=== PATIENT | male | born 1970 | race Caucasian/White ===

== ENCOUNTER 2017-09-18 20:08 | Emergency (ER) | payer OTHER ==
[~2017-09-18] VITALS: Ht 182.8 cm; Wt 104.3 kg
[~2017-09-18 20:08] MED LIST: AUGMENTIN 875 M1 TAB PO; B12,B-12,B 12500 MC1 PO; CEPHALEXIN500 M1 PO; CUBICIN500 MG IV; HUMALOG100 U/ML SC; LANTUS100 U/ML SC; LIPITOR10 MG PO; LISINOPRIL20 MG PO; LISINOPRIL5 MG PO; METFORMIN500 MG PO; NEEDLES1 EAC1 MC; SYRINGE1 EA10 MC; XARE20MG PO
[2017-09-18] MEDS ORDERED: NAPROSYN500 MG PO (22:11)
[2017-09-18] MEDS ORDERED: CEPHALEXIN500 M1 PO (22:11)
== END 2017-09-18 22:52 | disposition home or self-care (01) ==
LOC: ED 20:08
DX: L03.113 Cellulitis of right upper limb (principal); Z98.890 Other specified postprocedural states; Z79.899 Other long term (current) drug therapy; Z79.4 Long term (current) use of insulin

== ENCOUNTER 2017-09-21 19:07 | Inpatient (IN) | payer OTHER ==
[~2017-09-21] VITALS: Ht 182.8 cm; Wt 115.0 kg
[~2017-09-21 19:07] MED LIST changes: +NAPROSYN500 MG PO
[2017-09-21 19:30] VITALS: BP 168/84
[2017-09-21 20:55] LABS: BASO % 0.4 % (0.0-1.0); EOS # 0.1 10*3/uL (0.0-0.4); HEMATOCRIT 39.2 % (42.0-52.0); HEMOGLOBIN 13.3 g/dl (14.0-18.0); LYMPH # 1.4 10*3/uL (1.3-4.4); LYMPH % 12.7 % (27.0-41.0); MEAN CELL VOLUME 81.3 fl (80.0-94.0); MEAN CORPUSCULAR HGB 27.6 pg (27.0-31.0); MEAN CORPUSCULAR HGB CONC 33.9 g/dl (33.0-37.0); MEAN PLATELET VOLUME 12.2 fl (9.6-12.3); MONO # 0.9 10*3/uL (0.1-1.0); MONO % 7.9 % (3.0-9.0); NEUT # 8.4 10*3/uL (2.3-7.9); NEUT % 77.6 % (47.0-73.0); PLATELET COUNT AUTOMATED 211 10*3/uL (130-400); RED BLOOD COUNT 4.82 10*6/uL (4.50-5.90); RED CELL DISTRI WIDTH 12.1 % (0-14.5); WHITE BLOOD COUNT 10.9 10*3/uL (4.8-10.8)
[2017-09-21 21:11] LABS: ALBUMIN 2.6 gm/dl (3.1-4.5); ALKALINE PHOSPHATASE 96 U/L (45-117); BUN 13 mg/dl (7-24); CHLORIDE 98 mmol/L (98-107); SGOT/AST 11 IU/L (3-35); SGPT/ALT 15 U/L (12-78); SODIUM 134 mmol/L (136-145); TOTAL PROTEIN 7.1 gm/dL (6.4-8.2)
[2017-09-21 21:13] LABS: TROPONIN I < 0.015 ng/ml (<0.045)
[2017-09-21 23:00] VITALS: BP 138/79
[2017-09-22 07:24] LABS: BASO # 0.1 10*3/uL (0.0-0.1); BASO % 0.5 % (0.0-1.0); EOS # 0.1 10*3/uL (0.0-0.4); EOS % 1.1 % (1.0-4.0); HEMATOCRIT 37.1 % (42.0-52.0); HEMOGLOBIN 12.4 g/dl (14.0-18.0); LYMPH # 1.5 10*3/uL (1.3-4.4); LYMPH % 15.3 % (27.0-41.0); MEAN CELL VOLUME 82.4 fl (80.0-94.0); MEAN CORPUSCULAR HGB 27.6 pg (27.0-31.0); MEAN CORPUSCULAR HGB CONC 33.4 g/dl (33.0-37.0); MEAN PLATELET VOLUME 12.9 fl (9.6-12.3); MONO # 0.8 10*3/uL (0.1-1.0); NEUT # 7.1 10*3/uL (2.3-7.9); NEUT % 74.6 % (47.0-73.0); PLATELET COUNT AUTOMATED 194 10*3/uL (130-400); RED CELL DISTRI WIDTH 12.1 % (0-14.5); WHITE BLOOD COUNT 9.5 10*3/uL (4.8-10.8)
[2017-09-22 08:00] VITALS: BP 141/81
[2017-09-22 08:02] LABS: BUN 11 mg/dl (7-24); CHLORIDE 103 mmol/L (98-107); POTASSIUM 3.7 mmol/L (3.5-5.1); SODIUM 138 mmol/L (136-145); TOTAL PROTEIN 6.5 gm/dL (6.4-8.2); TRIGLYCERIDES 76 mg/dl (<150); VLDL CHOLESTEROL 15 mg/dL (6-40)
[2017-09-22 08:17] LABS: ALBUMIN 2.2 gm/dl (3.1-4.5); ALKALINE PHOSPHATASE 91 U/L (45-117); CHOLESTEROL 144 mg/dL (<200); CREATININE 1.02 mg/dL (0.70-1.30); HDL CHOLESTEROL 50 mg/dl (40-60); LDL CHOLESTEROL 79 mg/dL (9-159); SGOT/AST 9 IU/L (3-35); SGPT/ALT 13 U/L (12-78); THYROID STIM HORMONE (HS) 0.695 uIU/ml (0.358-4.75)
[2017-09-22 12:00] VITALS: BP 145/77
[2017-09-22 16:00] VITALS: BP 152/82
[2017-09-22 20:00] VITALS: BP 157/79
[2017-09-23] VITALS: BP 134/72
[2017-09-23 07:04] LABS: BASO % 0.4 % (0.0-1.0); EOS # 0.1 10*3/uL (0.0-0.4); EOS % 1.1 % (1.0-4.0); HEMATOCRIT 35.9 % (42.0-52.0); HEMOGLOBIN 11.9 g/dl (14.0-18.0); LYMPH # 1.4 10*3/uL (1.3-4.4); LYMPH % 14.7 % (27.0-41.0); MEAN CELL VOLUME 83.7 fl (80.0-94.0); MEAN CORPUSCULAR HGB 27.7 pg (27.0-31.0); MEAN CORPUSCULAR HGB CONC 33.1 g/dl (33.0-37.0); MEAN PLATELET VOLUME 12.1 fl (9.6-12.3); MONO # 0.9 10*3/uL (0.1-1.0); NEUT # 6.8 10*3/uL (2.3-7.9); NEUT % 73.4 % (47.0-73.0); PLATELET COUNT AUTOMATED 181 10*3/uL (130-400); RED BLOOD COUNT 4.29 10*6/uL (4.50-5.90); RED CELL DISTRI WIDTH 12.2 % (0-14.5); WHITE BLOOD COUNT 9.3 10*3/uL (4.8-10.8)
[2017-09-23 07:11] LABS: BUN 8 mg/dl (7-24); CHLORIDE 105 mmol/L (98-107); CREATININE 0.92 mg/dL (0.70-1.30); POTASSIUM 3.6 mmol/L (3.5-5.1); SODIUM 139 mmol/L (136-145)
[2017-09-23 07:15] VITALS: BP 176/82
[2017-09-23 08:00] VITALS: BP 154/74
[2017-09-23 12:00] VITALS: BP 152/76
[2017-09-23 16:00] VITALS: BP 153/84
[2017-09-23 20:00] VITALS: BP 157/84
[2017-09-24] VITALS: BP 157/78
[2017-09-24 07:07] LABS: BASO # 0.1 10*3/uL (0.0-0.1); BASO % 0.8 % (0.0-1.0); EOS # 0.2 10*3/uL (0.0-0.4); EOS % 1.7 % (1.0-4.0); HEMATOCRIT 35.1 % (42.0-52.0); HEMOGLOBIN 11.8 g/dl (14.0-18.0); LYMPH # 1.4 10*3/uL (1.3-4.4); LYMPH % 15.4 % (27.0-41.0); MEAN CELL VOLUME 83.2 fl (80.0-94.0); MEAN CORPUSCULAR HGB CONC 33.6 g/dl (33.0-37.0); MEAN PLATELET VOLUME 11.7 fl (9.6-12.3); MONO # 0.9 10*3/uL (0.1-1.0); MONO % 9.3 % (3.0-9.0); NEUT # 6.7 10*3/uL (2.3-7.9); NEUT % 72.3 % (47.0-73.0); PLATELET COUNT AUTOMATED 223 10*3/uL (130-400); RED BLOOD COUNT 4.22 10*6/uL (4.50-5.90); RED CELL DISTRI WIDTH 12.2 % (0-14.5); WHITE BLOOD COUNT 9.3 10*3/uL (4.8-10.8)
[2017-09-24 07:38] LABS: BUN 7 mg/dl (7-24); CHLORIDE 104 mmol/L (98-107); CREATININE 0.91 mg/dL (0.70-1.30); POTASSIUM 3.5 mmol/L (3.5-5.1); SODIUM 138 mmol/L (136-145); URIC ACID 2.9 mg/dL (3.5-7.2)
[2017-09-24 08:00] VITALS: BP 141/68
[2017-09-24 11:46] VITALS: BP 164/83
[2017-09-24 16:00] VITALS: BP 160/80
[2017-09-24 19:50] VITALS: BP 176/92
[2017-09-25] VITALS: BP 172/74
[2017-09-25 06:20] LABS: BASO # 0.1 10*3/uL (0.0-0.1); BASO % 0.6 % (0.0-1.0); EOS # 0.2 10*3/uL (0.0-0.4); EOS % 2.7 % (1.0-4.0); HEMATOCRIT 34.3 % (42.0-52.0); HEMOGLOBIN 11.4 g/dl (14.0-18.0); LYMPH # 1.5 10*3/uL (1.3-4.4); LYMPH % 18.9 % (27.0-41.0); MEAN CELL VOLUME 82.5 fl (80.0-94.0); MEAN CORPUSCULAR HGB 27.4 pg (27.0-31.0); MEAN CORPUSCULAR HGB CONC 33.2 g/dl (33.0-37.0); MEAN PLATELET VOLUME 11.6 fl (9.6-12.3); MONO # 0.8 10*3/uL (0.1-1.0); NEUT # 5.3 10*3/uL (2.3-7.9); PLATELET COUNT AUTOMATED 235 10*3/uL (130-400); RED BLOOD COUNT 4.16 10*6/uL (4.50-5.90); RED CELL DISTRI WIDTH 12.2 % (0-14.5); WHITE BLOOD COUNT 7.9 10*3/uL (4.8-10.8)
[2017-09-25 06:50] LABS: BUN 8 mg/dl (7-24); CHLORIDE 106 mmol/L (98-107); CREATININE 0.93 mg/dL (0.70-1.30); POTASSIUM 3.5 mmol/L (3.5-5.1); SODIUM 141 mmol/L (136-145)
[2017-09-25 08:00] VITALS: BP 160/83
[2017-09-25 12:00] VITALS: BP 158/80
[2017-09-25 16:00] VITALS: BP 174/90
[2017-09-25] MEDS ORDERED: DOXYCYCLINE100 M3 PO (17:59)
[2017-09-25] MEDS ORDERED: CEPHALEXIN500 M1 PO (17:59)
[2017-09-25 20:00] VITALS: BP 185/93
[2017-09-26] VITALS: BP 174/86
[2017-09-26 06:55] LABS: BASO # 0.1 10*3/uL (0.0-0.1); BASO % 0.6 % (0.0-1.0); EOS # 0.2 10*3/uL (0.0-0.4); EOS % 2.5 % (1.0-4.0); HEMATOCRIT 34.2 % (42.0-52.0); HEMOGLOBIN 11.5 g/dl (14.0-18.0); LYMPH # 1.5 10*3/uL (1.3-4.4); LYMPH % 17.7 % (27.0-41.0); MEAN CELL VOLUME 81.6 fl (80.0-94.0); MEAN CORPUSCULAR HGB 27.4 pg (27.0-31.0); MEAN CORPUSCULAR HGB CONC 33.6 g/dl (33.0-37.0); MEAN PLATELET VOLUME 11.6 fl (9.6-12.3); MONO # 0.9 10*3/uL (0.1-1.0); MONO % 10.4 % (3.0-9.0); NEUT # 5.8 10*3/uL (2.3-7.9); PLATELET COUNT AUTOMATED 263 10*3/uL (130-400); RED BLOOD COUNT 4.19 10*6/uL (4.50-5.90); RED CELL DISTRI WIDTH 12.1 % (0-14.5); WHITE BLOOD COUNT 8.5 10*3/uL (4.8-10.8)
[2017-09-26 07:22] LABS: BUN 7 mg/dl (7-24); CHLORIDE 102 mmol/L (98-107); CREATININE 0.85 mg/dL (0.70-1.30); POTASSIUM 3.3 mmol/L (3.5-5.1); SODIUM 140 mmol/L (136-145)
[2017-09-26 08:00] VITALS: BP 182/90
[2017-09-26] MEDS ORDERED: VITAMIN D-32000 UNIT PO (11:58)
[2017-09-26] MEDS ORDERED: ZESTRIL10 MG PO (11:58)
[2017-09-26] MEDS ORDERED: LANTUS SOL100 UNIT/1 SQ (12:04)
[2017-09-26] MEDS ORDERED: HUMALOG100 UNIT/2 SQ (12:05)
== END 2017-09-26 13:05 | disposition home or self-care (01) | DRG 871 ==
LOC: ED 19:07 → EDHOLD 22:02 → 5E 22:02 → EDHOLD 22:05 → 5E 22:31
PROVIDERS: Family Medicine; Family Medicine Adult Medicine; Internal Medicine; Nurse Practitioner Family
DX: A41.9 Sepsis, unspecified organism (principal); E43 Unspecified severe protein-calorie malnutrition; E08.40 Diabetes mellitus due to underlying condition with diabetic neuropathy, unspecified; L03.113 Cellulitis of right upper limb; D50.9 Iron deficiency anemia, unspecified; I10 Essential (primary) hypertension; D72.810 Lymphocytopenia; E66.09 Other obesity due to excess calories; E78.00 Pure hypercholesterolemia, unspecified; E55.9 Vitamin D deficiency, unspecified; E78.5 Hyperlipidemia, unspecified; Z86.718 Personal history of other venous thrombosis and embolism; Z89.422 Acquired absence of other left toe(s); Z83.3 Family history of diabetes mellitus; Z82.49 Family history of ischemic heart disease and other diseases of the circulatory system; Z79.4 Long term (current) use of insulin; Z78.9 Other specified health status; Z79.899 Other long term (current) drug therapy; Z80.52 Family history of malignant neoplasm of bladder; Z68.30 Body mass index [BMI] 30.0-30.9, adult

== ENCOUNTER → 2017-09-28 | Outpatient (CLI) | payer OTHER ==
[~2017-09-28] MED LIST changes: +DOXYCYCLINE100 M3 PO; +HUMALOG100 UNIT/2 SQ; +LANTUS SOL100 UNIT/1 SQ; +VITAMIN D-32000 UNIT PO; +ZESTRIL10 MG PO; +ZOFRAN ODT4 MG SL
== END | disposition home or self-care (01) ==
LOC: RESCLI 02:40
DX: Z09 Encounter for follow-up examination after completed treatment for conditions other than malignant neoplasm (principal); E11.65 Type 2 diabetes mellitus with hyperglycemia; L03.113 Cellulitis of right upper limb; I10 Essential (primary) hypertension; E55.9 Vitamin D deficiency, unspecified; E66.9 Obesity, unspecified; Z79.4 Long term (current) use of insulin

== ENCOUNTER 2017-10-04 06:14 | Emergency (ER) | payer OTHER ==
[~2017-10-04] VITALS: Ht 187.9 cm; Wt 99.8 kg
[~2017-10-04 06:14] MED LIST changes: -ZOFRAN ODT4 MG SL
[2017-10-04 06:53] LABS: BASO % 0.1 % (0.0-1.0); EOS % 0.4 % (1.0-4.0); HEMATOCRIT 42.1 % (42.0-52.0); HEMOGLOBIN 14.2 g/dl (14.0-18.0); LYMPH # 1.1 10*3/uL (1.3-4.4); LYMPH % 15.4 % (27.0-41.0); MEAN CELL VOLUME 82.1 fl (80.0-94.0); MEAN CORPUSCULAR HGB 27.7 pg (27.0-31.0); MEAN CORPUSCULAR HGB CONC 33.7 g/dl (33.0-37.0); MEAN PLATELET VOLUME 11.2 fl (9.6-12.3); MONO # 0.4 10*3/uL (0.1-1.0); MONO % 5.7 % (3.0-9.0); NEUT # 5.7 10*3/uL (2.3-7.9); PLATELET COUNT AUTOMATED 274 10*3/uL (130-400); RED BLOOD COUNT 5.13 10*6/uL (4.50-5.90); RED CELL DISTRI WIDTH 12.2 % (0-14.5); WHITE BLOOD COUNT 7.3 10*3/uL (4.8-10.8)
[2017-10-04 07:15] LABS: ALBUMIN 2.2 gm/dl (3.1-4.5); ALKALINE PHOSPHATASE 79 U/L (45-117); BUN 16 mg/dl (7-24); CHLORIDE 99 mmol/L (98-107); CREATININE 1.34 mg/dL (0.70-1.30); LIPASE 104 U/L (73-393); POTASSIUM 3.6 mmol/L (3.5-5.1); SGOT/AST 21 IU/L (3-35); SGPT/ALT 20 U/L (12-78); SODIUM 138 mmol/L (136-145); TOTAL PROTEIN 6.7 gm/dL (6.4-8.2)
[2017-10-04] MEDS ORDERED: ZOFRAN ODT4 MG SL (08:06)
== END 2017-10-04 09:35 | disposition home or self-care (01) ==
LOC: ED 06:14
PROVIDERS: Emergency Medicine Emergency Medical Services
DX: E11.65 Type 2 diabetes mellitus with hyperglycemia (principal); E11.40 Type 2 diabetes mellitus with diabetic neuropathy, unspecified; N17.9 Acute kidney failure, unspecified; I10 Essential (primary) hypertension; E78.5 Hyperlipidemia, unspecified; J11.1 Influenza due to unidentified influenza virus with other respiratory manifestations; E86.0 Dehydration; D72.810 Lymphocytopenia; Z79.4 Long term (current) use of insulin

== ENCOUNTER 2018-01-09 05:38 | Emergency (ER) | payer OTHER ==
[~2018-01-09] VITALS: Ht 182.8 cm; Wt 104.3 kg
[~2018-01-09 05:38] MED LIST changes: +ZOFRAN ODT4 MG SL
[2018-01-09] MEDS ORDERED: DOXYCYCLINE HY100 M3 PO (06:00)
[2018-01-09] MEDS ORDERED: ACULAR 3ML 3 ML5 ML OPH (06:00)
[2018-01-09] MEDS ORDERED: ERYTHROMYCIN OPH1 GM OPH (06:00)
== END 2018-01-09 06:24 | disposition home or self-care (01) ==
LOC: ED 05:38
DX: H00.012 Hordeolum externum right lower eyelid (principal); E11.65 Type 2 diabetes mellitus with hyperglycemia; E11.40 Type 2 diabetes mellitus with diabetic neuropathy, unspecified; E78.5 Hyperlipidemia, unspecified; I10 Essential (primary) hypertension; E66.9 Obesity, unspecified; Z86.718 Personal history of other venous thrombosis and embolism; Z79.4 Long term (current) use of insulin; Z79.899 Other long term (current) drug therapy

== ENCOUNTER → 2018-07-13 | Outpatient (CLI) | payer OTHER ==
[~2018-07-13] MED LIST changes: +ACULAR 3ML 3 ML5 ML OPH; +DOXYCYCLINE HY100 M3 PO; +ERYTHROMYCIN OPH1 GM OPH
== END | disposition home or self-care (01) ==
LOC: RESCLI 04:32
DX: E11.65 Type 2 diabetes mellitus with hyperglycemia (principal); I10 Essential (primary) hypertension; E55.9 Vitamin D deficiency, unspecified; Z79.899 Other long term (current) drug therapy; Z88.8 Allergy status to other drugs, medicaments and biological substances

== ENCOUNTER 2019-05-26 01:03 | Emergency (ER) | payer OTHER ==
[~2019-05-26] VITALS: Ht 182.8 cm; Wt 108.9 kg
[2019-05-26 01:43] LABS: BASO % 0.7 % (0.0-1.0); EOS # 0.2 10*3/uL (0.0-0.4); EOS % 2.7 % (1.0-4.0); HEMATOCRIT 42.3 % (42.0-52.0); LYMPH # 2.3 10*3/uL (1.3-4.4); LYMPH % 40.2 % (27.0-41.0); MEAN CELL VOLUME 84.9 fl (80.0-94.0); MEAN CORPUSCULAR HGB 28.1 pg (27.0-31.0); MEAN CORPUSCULAR HGB CONC 33.1 g/dl (33.0-37.0); MEAN PLATELET VOLUME 11.9 fl (9.6-12.3); MONO # 0.6 10*3/uL (0.1-1.0); MONO % 9.6 % (3.0-9.0); NEUT # 2.7 10*3/uL (2.3-7.9); NEUT % 46.6 % (47.0-73.0); PLATELET COUNT AUTOMATED 204 10*3/uL (130-400); RED BLOOD COUNT 4.98 10*6/uL (4.50-5.90); RED CELL DISTRI WIDTH 12.8 % (0-14.5); WHITE BLOOD COUNT 5.8 10*3/uL (4.8-10.8)
[2019-05-26 01:58] LABS: ALBUMIN 2.8 gm/dl (3.1-4.5); ALKALINE PHOSPHATASE 77 U/L (45-117); BUN 26 mg/dl (7-24); CHLORIDE 109 mmol/L (98-107); CREATININE 1.52 mg/dL (0.70-1.30); POTASSIUM 3.9 mmol/L (3.5-5.1); SGOT/AST 16 IU/L (3-35); SGPT/ALT 22 U/L (12-78); SODIUM 142 mmol/L (136-145); TOTAL PROTEIN 6.4 gm/dL (6.4-8.2)
[2019-05-26] MEDS ORDERED: FLAGYL500 MG PO (03:12)
[2019-05-26] MEDS ORDERED: KEFLEX500 M1 PO (03:13)
== END 2019-05-26 03:21 | disposition home or self-care (01) ==
LOC: ED 01:03
PROVIDERS: Emergency Medicine Emergency Medical Services
DX: L97.519 Non-pressure chronic ulcer of other part of right foot with unspecified severity (principal); E11.40 Type 2 diabetes mellitus with diabetic neuropathy, unspecified; E78.5 Hyperlipidemia, unspecified; I10 Essential (primary) hypertension; E66.9 Obesity, unspecified; M86.9 Osteomyelitis, unspecified; Z79.4 Long term (current) use of insulin; Z89.422 Acquired absence of other left toe(s); Z86.718 Personal history of other venous thrombosis and embolism; Z79.899 Other long term (current) drug therapy

== ENCOUNTER → 2019-07-25 | Outpatient (CLI) | payer OTHER ==
[~2019-07-25] MED LIST changes: +FLAGYL500 MG PO; +KEFLEX500 M1 PO
== END | disposition home or self-care (01) ==
LOC: RESCLI 13:43
DX: Z13.31 Encounter for screening for depression (principal); I10 Essential (primary) hypertension; E55.9 Vitamin D deficiency, unspecified; E11.65 Type 2 diabetes mellitus with hyperglycemia; G62.9 Polyneuropathy, unspecified; Z91.14 Patient's other noncompliance with medication regimen; Z79.899 Other long term (current) drug therapy; Z79.4 Long term (current) use of insulin

== ENCOUNTER → 2019-07-27 | Outpatient (CLI) | payer OTHER ==
[2019-07-27 14:03] LABS: BASO # 0.1 10*3/uL (0.0-0.1); BASO % 0.6 % (0.0-1.0); EOS # 0.1 10*3/uL (0.0-0.4); EOS % 1.5 % (1.0-4.0); HEMATOCRIT 42.6 % (42.0-52.0); HEMOGLOBIN 14.1 g/dl (14.0-18.0); LYMPH # 2.1 10*3/uL (1.3-4.4); MEAN CELL VOLUME 84.4 fl (80.0-94.0); MEAN CORPUSCULAR HGB 27.9 pg (27.0-31.0); MEAN CORPUSCULAR HGB CONC 33.1 g/dl (33.0-37.0); MEAN PLATELET VOLUME 11.9 fl (9.6-12.3); MONO # 0.6 10*3/uL (0.1-1.0); MONO % 7.8 % (3.0-9.0); NEUT # 5.3 10*3/uL (2.3-7.9); NEUT % 63.9 % (47.0-73.0); PLATELET COUNT AUTOMATED 200 10*3/uL (130-400); RED BLOOD COUNT 5.05 10*6/uL (4.50-5.90); RED CELL DISTRI WIDTH 12.7 % (0-14.5); WHITE BLOOD COUNT 8.2 10*3/uL (4.8-10.8)
[2019-07-27 14:35] LABS: ALBUMIN 2.8 gm/dl (3.1-4.5); ALKALINE PHOSPHATASE 85 U/L (45-117); BUN 19 mg/dl (7-24); CHLORIDE 109 mmol/L (98-107); CHOLESTEROL 214 mg/dL (<200); CREATININE 1.03 mg/dL (0.70-1.30); HDL CHOLESTEROL 55 mg/dl (40-60); LDL CHOLESTEROL 146 mg/dL (9-159); SGOT/AST 14 IU/L (3-35); SGPT/ALT 23 U/L (12-78); SODIUM 141 mmol/L (136-145); TOTAL PROTEIN 6.4 gm/dL (6.4-8.2); TRIGLYCERIDES 64 mg/dl (<150); VLDL CHOLESTEROL 13 mg/dL (6-40)
[2019-07-28 09:10] LABS: CREATININE,URINE 80.8 mg/dL (Not Estab.)
[2019-07-28 10:07] LABS: MICRO ALBUMIN/CRE RATIO 4129.7 (0.0-30.0)
== END | disposition home or self-care (01) ==
LOC: LAB 13:28
PROVIDERS: Internal Medicine
DX: E11.65 Type 2 diabetes mellitus with hyperglycemia (principal); I10 Essential (primary) hypertension

== ENCOUNTER → 2019-08-31 | Outpatient (CLI) | payer OTHER ==
--- NOTE | 2019-09-01 11:22 | NUR ---
6 minute walk: Pt.'s H.R. was 67, R.R. 18, Spo2 98% on R.A. and B/P 142/58 at rest. pt. was ambulated approximately 40 feet and appeared to be short of breath but his spo2 was 96-97% during the ambulation. His H.R. was 64, R.R. 28 on R.A. Pt. was retuened to his room without any incident and physician was made aware of results.
== END | disposition home or self-care (01) ==
LOC: RESCLI 01:23
DX: I10 Essential (primary) hypertension (principal); E55.9 Vitamin D deficiency, unspecified; E11.65 Type 2 diabetes mellitus with hyperglycemia; E78.5 Hyperlipidemia, unspecified; R80.9 Proteinuria, unspecified; Z79.899 Other long term (current) drug therapy

== ENCOUNTER 2019-11-07 10:32 | Emergency (ER) | payer OTHER ==
[~2019-11-07] VITALS: Ht 182.8 cm; Wt 104.3 kg
[2019-11-07] MEDS ORDERED: CEPHALEXIN500 M1 PO ×2 (10:53→11:56)
== END 2019-11-07 12:03 | disposition home or self-care (01) ==
LOC: ED 10:32
DX: S62.633A Displaced fracture of distal phalanx of left middle finger, initial encounter for closed fracture (principal); E11.9 Type 2 diabetes mellitus without complications; Z79.899 Other long term (current) drug therapy; Z79.2 Long term (current) use of antibiotics; Z89.422 Acquired absence of other left toe(s); W31.89XA Contact with other specified machinery, initial encounter; Y93.89 Activity, other specified; Y92.89 Other specified places as the place of occurrence of the external cause; Y99.0 Civilian activity done for income or pay

== ENCOUNTER → 2020-05-01 | Outpatient (CLI) | payer OTHER ==
[~2020-05-01] MED LIST changes: +INDOMETHACIN25 M1 PO; +TYLENOL325 M1 PO
== END | disposition home or self-care (01) ==
LOC: RAD 13:48
PROVIDERS: ATTEND Family Medicine
DX: M17.11 Unilateral primary osteoarthritis, right knee (principal)

== ENCOUNTER 2020-05-04 06:17 | Emergency (ER) | payer OTHER ==
[~2020-05-04] VITALS: Ht 182.8 cm; Wt 104.3 kg
[~2020-05-04 06:17] MED LIST changes: -INDOMETHACIN25 M1 PO; -TYLENOL325 M1 PO
[2020-05-04 08:04] LABS: BASO % 0.2 % (0.0-1.0); EOS % 0.3 % (1.0-4.0); HEMATOCRIT 35.6 % (42.0-52.0); LYMPH # 2.8 10*3/uL (1.3-4.4); MEAN CELL VOLUME 82.6 fl (80.0-94.0); MEAN CORPUSCULAR HGB 27.4 pg (27.0-31.0); MEAN CORPUSCULAR HGB CONC 33.1 g/dl (33.0-37.0); MEAN PLATELET VOLUME 12.1 fl (9.6-12.3); MONO # 1.3 10*3/uL (0.1-1.0); MONO % 10.3 % (3.0-9.0); NEUT % 65.8 % (47.0-73.0); PLATELET COUNT AUTOMATED 253 10*3/uL (130-400); RED BLOOD COUNT 4.31 10*6/uL (4.50-5.90); RED CELL DISTRI WIDTH 12.9 % (0-14.5); WHITE BLOOD COUNT 12.1 10*3/uL (4.8-10.8)
[2020-05-04 08:18] LABS: ACT PARTIAL THROMBO TIME 26.1 SECONDS (20.0-32.1); INTERNATIONAL NORM RATIO 0.9 (2.0-3.5)
[2020-05-04 08:22] LABS: ALBUMIN 2.5 gm/dl (3.1-4.5); ALKALINE PHOSPHATASE 72 U/L (45-117); BUN 26 mg/dl (7-24); CHLORIDE 108 mmol/L (98-107); CREATININE 1.21 mg/dL (0.70-1.30); POTASSIUM 3.6 mmol/L (3.5-5.1); SGOT/AST 11 IU/L (3-35); SGPT/ALT 22 U/L (12-78); SODIUM 140 mmol/L (136-145); TOTAL PROTEIN 6.7 gm/dL (6.4-8.2)
[2020-05-04] MEDS ORDERED: INDOMETHACIN25 M1 PO (09:03)
[2020-05-04] MEDS ORDERED: TYLENOL325 M1 PO (09:03)
[2020-05-04 09:12] LABS: BODY FLUID WBC 189 /uL
[2020-05-04 09:53] LABS: BF LYMPHOCYTES 9 %; BF MACROPHAGES 64 %; BF NEUTROPHILS 27 %
== END 2020-05-04 09:30 | disposition home or self-care (01) ==
LOC: ED 06:17
PROVIDERS: Emergency Medicine
DX: M25.461 Effusion, right knee (principal); M79.89 Other specified soft tissue disorders; Z79.899 Other long term (current) drug therapy

== ENCOUNTER 2020-05-11 13:47 | Emergency (ER) | payer OTHER ==
[~2020-05-11] VITALS: Wt 108.9 kg
[~2020-05-11 13:47] MED LIST changes: +INDOMETHACIN25 M1 PO; +TYLENOL325 M1 PO
[2020-05-11 14:32] LABS: BASO % 0.3 % (0.0-1.0); EOS # 0.1 10*3/uL (0.0-0.4); EOS % 0.7 % (1.0-4.0); HEMATOCRIT 34.5 % (42.0-52.0); LYMPH # 1.5 10*3/uL (1.3-4.4); MEAN CELL VOLUME 83.5 fl (80.0-94.0); MEAN CORPUSCULAR HGB 27.1 pg (27.0-31.0); MEAN CORPUSCULAR HGB CONC 32.5 g/dl (33.0-37.0); MEAN PLATELET VOLUME 11.4 fl (9.6-12.3); MONO % 6.7 % (3.0-9.0); NEUT # 12.3 10*3/uL (2.3-7.9); NEUT % 81.8 % (47.0-73.0); PLATELET COUNT AUTOMATED 288 10*3/uL (130-400); RED BLOOD COUNT 4.13 10*6/uL (4.50-5.90); RED CELL DISTRI WIDTH 12.8 % (0-14.5)
[2020-05-11 14:46] LABS: ALBUMIN 2.3 gm/dl (3.1-4.5); CREATININE 1.65 mg/dL (0.70-1.30); POTASSIUM 3.9 mmol/L (3.5-5.1); TOTAL PROTEIN 7.4 gm/dL (6.4-8.2)
[2020-05-11] MEDS ORDERED: CEPHALEXIN500 M1 PO (15:46)
[2020-05-11] MEDS ORDERED: NORCO 5-325 TA1 EACH PO (15:46)
== END 2020-05-11 15:53 | disposition home or self-care (01) ==
LOC: ED 13:47
PROVIDERS: Physician Assistant
DX: M25.461 Effusion, right knee (principal); Z79.899 Other long term (current) drug therapy

== ENCOUNTER → 2020-05-15 | Outpatient (CLI) | payer OTHER ==
[~2020-05-15] MED LIST changes: +ASPIRIN ADULT L81 M1 PO; +ATORVASTATIN CA40 M1 PO; +BASAG SOL SQ; +NORCO 5-325 TA1 EACH PO
[2020-05-15 10:33] LABS: BODY FLUID WBC 3415 /uL
[2020-05-15 10:48] LABS: BASO # 0.1 10*3/uL (0.0-0.1); BASO % 0.4 % (0.0-1.0); EOS # 0.1 10*3/uL (0.0-0.4); EOS % 0.9 % (1.0-4.0); HEMATOCRIT 37.3 % (42.0-52.0); LYMPH # 1.5 10*3/uL (1.3-4.4); LYMPH % 10.9 % (27.0-41.0); MEAN CELL VOLUME 85.9 fl (80.0-94.0); MEAN CORPUSCULAR HGB 27.2 pg (27.0-31.0); MEAN CORPUSCULAR HGB CONC 31.6 g/dl (33.0-37.0); MEAN PLATELET VOLUME 11.5 fl (9.6-12.3); PLATELET COUNT AUTOMATED 385 10*3/uL (130-400); RED BLOOD COUNT 4.34 10*6/uL (4.50-5.90); RED CELL DISTRI WIDTH 12.6 % (0-14.5); WHITE BLOOD COUNT 13.8 10*3/uL (4.8-10.8)
[2020-05-15 11:25] LABS: BF LYMPHOCYTES 1 %; BF MACROPHAGES 14 %; BF NEUTROPHILS 85 %
[2020-05-16 10:11] LABS: ACID FAST SPEC PROCESSING Tissue Grinding (.)
== END | disposition home or self-care (01) ==
LOC: LAB 09:45
PROVIDERS: ATTEND Orthopaedic Surgery
DX: M25.561 Pain in right knee (principal); M25.461 Effusion, right knee

== ENCOUNTER 2020-05-16 15:34 | Inpatient (IN) | payer OTHER ==
[~2020-05-16] VITALS: Ht 182.9 cm; Wt 103.9 kg
[~2020-05-16 15:34] MED LIST changes: -ASPIRIN ADULT L81 M1 PO; -ATORVASTATIN CA40 M1 PO; -BASAG SOL SQ; -NAFCILLIN2 GM IV; -VITAMIN D31250 MC1 PO; -XARE15TA PO; -XARELTO1 EACH PO
[2020-05-16 15:38] VITALS: BP 138/70
[2020-05-16 17:31] LABS: BASO # 0.1 10*3/uL (0.0-0.1); BASO % 0.4 % (0.0-1.0); EOS # 0.2 10*3/uL (0.0-0.4); EOS % 1.1 % (1.0-4.0); HEMATOCRIT 34.5 % (42.0-52.0); LYMPH # 1.5 10*3/uL (1.3-4.4); LYMPH % 11.2 % (27.0-41.0); MEAN CELL VOLUME 83.7 fl (80.0-94.0); MEAN CORPUSCULAR HGB 26.7 pg (27.0-31.0); MEAN CORPUSCULAR HGB CONC 31.9 g/dl (33.0-37.0); MEAN PLATELET VOLUME 10.9 fl (9.6-12.3); MONO # 0.9 10*3/uL (0.1-1.0); MONO % 6.8 % (3.0-9.0); PLATELET COUNT AUTOMATED 413 10*3/uL (130-400); RED BLOOD COUNT 4.12 10*6/uL (4.50-5.90); RED CELL DISTRI WIDTH 12.3 % (0-14.5); WHITE BLOOD COUNT 13.7 10*3/uL (4.8-10.8)
[2020-05-16 17:34] VITALS: BP 136/78
[2020-05-16 17:43] LABS: ALKALINE PHOSPHATASE 84 U/L (45-117); BUN 19 mg/dl (7-24); CHLORIDE 97 mmol/L (98-107); CREATININE 1.29 mg/dL (0.70-1.30); POTASSIUM 3.3 mmol/L (3.5-5.1); SGOT/AST 9 IU/L (3-35); SGPT/ALT 20 U/L (12-78); SODIUM 133 mmol/L (136-145); TOTAL PROTEIN 8.2 gm/dL (6.4-8.2)
--- NOTE | 2020-05-16 18:44 | NUR ---
PT WILL WAIT UNTIL AFTER SHIFT CHANGE DUE TO SHORT STAFFING IN THE ER.
--- NOTE | 2020-05-16 19:15 | NUR ---
PT DENIES WOUNDS.
--- NOTE | 2020-05-16 19:32 | NUR ---
FLOOR CONTACTED ABOUT PT. WILL CONTACT ME WHEN NURSE IS LOCATED AND THEY ARE READY.
[2020-05-16 19:38] VITALS: BP 165/75
--- NOTE | 2020-05-16 19:38 | NUR ---
Time: 47 A 49 year old MALE admitted to under services of DAVIN GRUBBS DO, Pt. arrived via bed from ER. Chief complaint: R KNEE SWELLING. CARYN SPENCER
--- NOTE | 2020-05-16 19:38 | NUR ---
Time: 1935 A 49 year old MALE admitted to under services of DAVIN GRUBBS DO, Pt. arrived via bed from ER. Chief complaint: RIGHT KNEE SWELLING. CARYN SPENCER
--- NOTE | 2020-05-16 19:38 | NUR ---
ER STAFF CONSULTED
[2020-05-16 20:00] VITALS: BP 169/75
[2020-05-16] MEDS ORDERED: ASPIRIN ADULT L81 M1 PO (20:49)
[2020-05-16] MEDS ORDERED: ATORVASTATIN CA40 M1 PO (20:49)
[2020-05-16] MEDS ORDERED: BASAG SOL SQ (20:50)
--- NOTE | 2020-05-16 21:37 | NUR ---
Hep Lock discontinued L ARM Site symptomatic, PULLED OUT. Pressure applied. Sterile dressing applied. CARYN SPENCER
--- NOTE | 2020-05-16 21:40 | NUR ---
PATIENT MEDICATED WITH NOROC FOR C/O 02/22 RIGHT KNEE PAIN. WILL MONITOR
[2020-05-17] VITALS (9 sets, daily range): BP systolic 136–170; BP diastolic 71–82
--- NOTE | 2020-05-17 | NUR ---
RESTING QUIETLY IN BED WITH EYES CLOSED. RESPONDS TO VERBAL STIMULI. NO C/O VOICED.
--- NOTE | 2020-05-17 03:33 | NUR ---
C/O RIGHT KNEE PAIN. REPOSITIONED WITHOUT EFFECT. MEDICATED PER PRN ORDER.
--- NOTE | 2020-05-17 05:54 | NUR ---
C/O RT. KNEE PAIN. REPOSITIONED WITHOUT EFFECT. ADMINISTERED TYLENOL PER ORDER.
[2020-05-17 06:04] LABS: BASO # 0.1 10*3/uL (0.0-0.1); BASO % 0.4 % (0.0-1.0); EOS # 0.2 10*3/uL (0.0-0.4); HEMATOCRIT 29.8 % (42.0-52.0); LYMPH # 1.6 10*3/uL (1.3-4.4); LYMPH % 14.6 % (27.0-41.0); MEAN CELL VOLUME 84.4 fl (80.0-94.0); MEAN CORPUSCULAR HGB 26.9 pg (27.0-31.0); MEAN CORPUSCULAR HGB CONC 31.9 g/dl (33.0-37.0); MEAN PLATELET VOLUME 11.2 fl (9.6-12.3); MONO % 8.5 % (3.0-9.0); NEUT # 8.2 10*3/uL (2.3-7.9); NEUT % 73.9 % (47.0-73.0); PLATELET COUNT AUTOMATED 335 10*3/uL (130-400); RED BLOOD COUNT 3.53 10*6/uL (4.50-5.90); RED CELL DISTRI WIDTH 12.5 % (0-14.5); WHITE BLOOD COUNT 11.1 10*3/uL (4.8-10.8)
[2020-05-17 06:15] LABS: ALBUMIN 1.6 gm/dl (3.1-4.5); ALKALINE PHOSPHATASE 69 U/L (45-117); BUN 17 mg/dl (7-24); CHLORIDE 105 mmol/L (98-107); CHOLESTEROL 114 mg/dL (<200); CREATININE 1.07 mg/dL (0.70-1.30); HDL CHOLESTEROL 25 mg/dl (40-60); LDL CHOLESTEROL 70 mg/dL (9-159); POTASSIUM 3.5 mmol/L (3.5-5.1); SGOT/AST 10 IU/L (3-35); SGPT/ALT 12 U/L (12-78); SODIUM 136 mmol/L (136-145); TOTAL PROTEIN 6.8 gm/dL (6.4-8.2); TRIGLYCERIDES 93 mg/dl (<150); VLDL CHOLESTEROL 19 mg/dL (6-40)
--- NOTE | 2020-05-17 06:38 | NUR ---
NOTIFIED OF [facility].
[2020-05-17 07:45] LABS: VITAMIN D, 25-HYDROXY 45.4 ng/mL (30-100)
--- NOTE | 2020-05-17 07:57 | NUR ---
PHYSICAL THERAPY Screen received pt admitted with R knee pain inability to ambulate pt is for Orthope[facility] consult will follow for orders as appropriate thank you. Jacque Davis PT
--- NOTE | 2020-05-17 09:00 | NUR ---
Gis Mapping Technician in to talk to patient. Patient states lives at home with alone. There are 5 steps in the home. Physician: bam johns [facility]acy: [facility]: none Patient's level of ADLs: INDEPENDENT Patient has working utilities: all working DME: myra Follow-up physician's appointment after d/c: will be made by hospitalist nurse director upon discharge Does patient want to access PORTAL?: no Discharge plan discussed with patient, he states he lives at home alone, he was independent in adls and ambulation, works, drives until his problem with his knee. he states he is having difficulty walking at this time, discussed with him a short term shelter for 5 days of rehab and 24 hour care prior to returning home. he declined. also discussed with him [facility] and educated him on the services they provide. he also declined this. he stated he would return home when discharged and didn't feel he needed any help. case management will follow. RODOLFO SIMPSON
--- NOTE | 2020-05-17 10:23 | NUR ---
OFF FLOOR FOR SURGERY.
--- NOTE | 2020-05-17 11:50 | NUR ---
PT GIVEN IS. IN SURGERY AT THE MOMENT
--- NOTE | 2020-05-17 12:19 | NUR ---
BACK TO ROOM FOLLOWING SURGERY. VSS. CALL LIGHT WITHIN REACH.
--- NOTE | 2020-05-17 12:37 | NUR ---
JOSIASCO GIVEN FOR COMPLAINTS OF S/P DEBRIDEMENT PAIN TO RT KNEE. WILL MONITOR. CALL LIGHT IN REACH.
--- NOTE | 2020-05-17 13:12 | NUR ---
PER PT, NORCO WAS EFFECTIVE. CALL LIGHT IN REACH.
--- NOTE | 2020-05-17 16:48 | NUR ---
BP 170/72 MANUAL. INFORMED PT JUST HAD A CONVERSATION WITH ABOUT POSSIBLE SURGERY TOMORROW MORNING. REPORTS FEELINGS OF ANGER ABOUT THIS AND SAYS THAT WHEN HE FEELS THIS WAY HIS BP ALSO INCREASES. THIS IS NOT UNUSUAL FOR HIM.
--- NOTE | 2020-05-17 20:00 | NUR ---
Neurological: awake,alert,oriented Respiratory: easy, regular,no distress Breath sounds: clear Cough: none Cardiovascular: no problem Gastrointestinal: soft Genito/Urinary: no problem Musculoskeketal: amputee (lower extremity) MAGDALENA JOHNSON
--- NOTE | 2020-05-17 21:15 | NUR ---
C/O KNEE PAIN. REPOSITIONED WITHOUT EFFECT. MEDICATED PER PRN ORDER.
[2020-05-18] VITALS (12 sets, daily range): BP systolic 106–179; BP diastolic 49–82
--- NOTE | 2020-05-18 | NUR ---
RESTING QUIETLY IN BED WITH EYES CLOSED. RESPONDS TO VERBAL STIMULI. NO C/O VOICED. NPO. HALF NS STARTED PER ORDER. CALL IN REACH.
--- NOTE | 2020-05-18 04:00 | NUR ---
C/O KNEE PAIN. WALKED AROUND WITHOUT EFFECT. MEDICATED PER EMAR.
--- NOTE | 2020-05-18 06:38 | NUR ---
DR. BACK PHONED IN AND UPDATED ON PT'S STATUS. TAKING PT BACK IN TO SURGERY THIS MORNING. SHIFT DIRECTOR NOTIFIED.
[2020-05-18 07:23] LABS: BASO # 0.1 10*3/uL (0.0-0.1); BASO % 0.4 % (0.0-1.0); EOS # 0.2 10*3/uL (0.0-0.4); EOS % 1.9 % (1.0-4.0); HEMATOCRIT 30.6 % (42.0-52.0); LYMPH # 1.6 10*3/uL (1.3-4.4); MEAN CELL VOLUME 84.3 fl (80.0-94.0); MEAN CORPUSCULAR HGB 26.7 pg (27.0-31.0); MEAN CORPUSCULAR HGB CONC 31.7 g/dl (33.0-37.0); MEAN PLATELET VOLUME 10.8 fl (9.6-12.3); MONO # 0.9 10*3/uL (0.1-1.0); MONO % 7.2 % (3.0-9.0); NEUT # 9.2 10*3/uL (2.3-7.9); PLATELET COUNT AUTOMATED 341 10*3/uL (130-400); RED BLOOD COUNT 3.63 10*6/uL (4.50-5.90); RED CELL DISTRI WIDTH 12.2 % (0-14.5); WHITE BLOOD COUNT 11.9 10*3/uL (4.8-10.8)
[2020-05-18 07:36] LABS: BUN 11 mg/dl (7-24); CHLORIDE 105 mmol/L (98-107); CREATININE 0.93 mg/dL (0.70-1.30); POTASSIUM 3.5 mmol/L (3.5-5.1); SODIUM 138 mmol/L (136-145)
--- NOTE | 2020-05-18 13:30 | NUR ---
PHYSICAL THERAPY PT KARRIAL COMPLETED TODAY ON LEVEL 4: PATIENT WAS NOT WILLING TO COMPLETE STAIR TRAINING WITH PT TODAY STATING HE IS TOO SORE AND HE WILL FIGURE IT OUT WHEN HE GETS HOME. WAS WILLING TO ALLOW PT TO DISCUSS IMPORTANCE OF ROM AND STRENGTHENING EXERCISES WELL IMPORTANCE OF FLUID MOBILIZATION TO DECREASE SWELLING AND ALLOW FOR IMPROVED ROM OF THE R KNEE. ALLOWED PT TO INSTRUCT HIM IN AND COMPLETE 2 SETS OF 10 REPS FOR QUAD SETS, ANKLE PUMPS, GLUTEAL SETS AND EDUCATION PROVIDED FOR KNEE FLEXION AND EXTENSION AND SLR'S BUT WAS NOT WILLING TO COMPLETE THESE TODAY. WILL HAVE ELECTRIC ARC FURNACE OPERATOR CHECK ON HIM TOMORROW TO OFFER STAIR TRAINING AND COMPLETE THERE EX WITH HIM. PT KARRIAL IS LOW COMPLEXITY: 95082: D/C PLANS ARE HOME WHICH IS 2 STORY WITH GIRLFRIEND AND HOME EX PROGRAM AND OUTPATIENT PT IF INDICATED. THANKS FOR REFERRAL AMNA MCKEON PT
--- NOTE | 2020-05-18 20:00 | NUR ---
ASSESSMENT COMPLETE. C/O KNEE PAIN. REPOSITIONED WITHOUT EFFECT. MEDICATED PER ORDER. IV ASYPTOMATIC. RT KNEE DRSG DRY AND INTACT. CALL LIGHT IN REACH.
[2020-05-19] VITALS: BP 155/58
--- NOTE | 2020-05-19 00:54 | NUR ---
PT C/O RT KNEE PAIN 01/23. MEDICATED W/PO NORCO. DRSG TO RT KNEE DRY/INTACT. WILL MONITOR FOR EFFECTIVENESS OF PAIN MED. CALL LIGHT IN REACH.
[2020-05-19 05:51] LABS: BUN 15 mg/dl (7-24); CHLORIDE 104 mmol/L (98-107); CREATININE 1.05 mg/dL (0.70-1.30); POTASSIUM 3.5 mmol/L (3.5-5.1); SODIUM 138 mmol/L (136-145)
[2020-05-19 06:11] LABS: BASO # 0.1 10*3/uL (0.0-0.1); BASO % 0.4 % (0.0-1.0); EOS # 0.2 10*3/uL (0.0-0.4); EOS % 1.2 % (1.0-4.0); HEMATOCRIT 28.8 % (42.0-52.0); LYMPH # 1.8 10*3/uL (1.3-4.4); LYMPH % 13.3 % (27.0-41.0); MEAN CORPUSCULAR HGB 26.5 pg (27.0-31.0); MEAN CORPUSCULAR HGB CONC 31.3 g/dl (33.0-37.0); MEAN PLATELET VOLUME 11.2 fl (9.6-12.3); MONO # 1.3 10*3/uL (0.1-1.0); MONO % 9.1 % (3.0-9.0); NEUT # 10.4 10*3/uL (2.3-7.9); NEUT % 75.5 % (47.0-73.0); PLATELET COUNT AUTOMATED 336 10*3/uL (130-400); RED BLOOD COUNT 3.39 10*6/uL (4.50-5.90); RED CELL DISTRI WIDTH 12.4 % (0-14.5); WHITE BLOOD COUNT 13.8 10*3/uL (4.8-10.8)
[2020-05-19 08:00] VITALS: BP 161/64
--- NOTE | 2020-05-19 11:49 | NUR ---
MEDICATED WITH PRN NORCO PER ORDER AND REQUEST.
[2020-05-19 12:00] VITALS: BP 160/76
[2020-05-19 14:08] LABS: ACID FAST SPEC PROCESSING Tissue Grinding (.)
[2020-05-19 14:08] LABS: ACID FAST SPEC PROCESSING Tissue Grinding (.)
[2020-05-19 14:08] LABS: ACID FAST SPEC PROCESSING Tissue Grinding (.)
--- NOTE | 2020-05-19 15:23 | NUR ---
Pt cleared for PT by RN. Pt agreed to exercises, but denies being able to attempt stairs or gait because he doesnt want to make R knee sore. Describes pain as an "ache.' 2/10 pain level. Pt lying supine with knee wrapped. Pt performs supine QS and AP 30x, Heelside flexion AROM 15x. Seated toe raise /heel raise 10x. AAROM LAQ 5x. Pt declined further rom of the knee stating it is starting to get painful. Pt education on importance of hourly knee ROM tasks while supine. Pt unable to perform active LAQ. Pt returned to supine position and all needs met. Minh Romero, MANAGED SECURITY SALES CONSULTANT
[2020-05-19 16:00] VITALS: BP 168/82
--- NOTE | 2020-05-19 16:26 | NUR ---
MEDICATED WITH PRN NORCO PER ORDER.
[2020-05-19 20:00] VITALS: BP 159/75
--- NOTE | 2020-05-19 22:30 | NUR ---
PT OFFERED TO GET SET UP TO WASH UP FOR RIGOBERTO IN AM. PT STATES HE WAS WASHED UP ON AFTERNOON SHIFT. AIDE CONFIRMED THIS, BUT STATES BED WAS NOT CHANGED. PT OFFERED A BED CHANGE, BUT PT REFUSING AT THIS TIME HE DOES NOT WANT TO GET UP. WILL OFFER AT LATER TIME.
[2020-05-20] VITALS (9 sets, daily range): BP systolic 146–173; BP diastolic 68–83
--- NOTE | 2020-05-20 04:02 | NUR ---
PT ASLEEP IN BED. RESPIRATIONS EASY. NO S/S OF DISTRESS NOTED. WILL MONITOR. CALL LIGHT IN REACH.
[2020-05-20 06:19] LABS: BASO % 0.4 % (0.0-1.0); EOS # 0.2 10*3/uL (0.0-0.4); EOS % 2.1 % (1.0-4.0); HEMATOCRIT 29.3 % (42.0-52.0); LYMPH # 1.4 10*3/uL (1.3-4.4); LYMPH % 13.4 % (27.0-41.0); MEAN CELL VOLUME 84.4 fl (80.0-94.0); MEAN CORPUSCULAR HGB 26.5 pg (27.0-31.0); MEAN CORPUSCULAR HGB CONC 31.4 g/dl (33.0-37.0); MEAN PLATELET VOLUME 10.7 fl (9.6-12.3); MONO % 8.9 % (3.0-9.0); NEUT # 7.9 10*3/uL (2.3-7.9); NEUT % 74.6 % (47.0-73.0); PLATELET COUNT AUTOMATED 344 10*3/uL (130-400); RED BLOOD COUNT 3.47 10*6/uL (4.50-5.90); RED CELL DISTRI WIDTH 12.4 % (0-14.5); WHITE BLOOD COUNT 10.6 10*3/uL (4.8-10.8)
[2020-05-20 06:29] LABS: BUN 12 mg/dl (7-24); CHLORIDE 105 mmol/L (98-107); CREATININE 1.01 mg/dL (0.70-1.30); POTASSIUM 3.5 mmol/L (3.5-5.1); SODIUM 135 mmol/L (136-145)
--- NOTE | 2020-05-20 07:00 | NUR ---
ARRIVED ON SHIFT, REPORT RECEIVED FROM OFFGOING NURSE, ASSUMED CARE OF PATIENT.
--- NOTE | 2020-05-20 07:35 | NUR ---
INTRODUCED SELF TO PATIENT, BED IN LOW POSITION, WHEEL LOCKS ENGAGED, SIDE RAILS UP X2 FOR TURNING AND REPOSITIOING, BED ALARM FUR DRY CLEANER HAND LIGHT WITHIN REACH, NO NEEDS VOICED AT THIS TIME, WHITE BOARD UPDATED.
--- NOTE | 2020-05-20 07:35 | NUR ---
BILLY SCHMID NP NOTIFIED OF PT NEEDING PICC LINE, BUT SURGERY PROBABLY UNABLE TO DO TODAY DUE TO SCHEDULE. MARKETING PROPOSAL COORDINATOR QUESTIONING IF ANY RESIDENTS AVAILABLE TO INSERT A PICC. PER BILLY, NO RESIDENTS AVAILABLE. WILL LET SHIFT DIRECTOR KNOW.
--- NOTE | 2020-05-20 08:41 | NUR ---
Shift chart check completed.
--- NOTE | 2020-05-20 09:00 | NUR ---
PHYSICAL THERAPY Patient seen this am 1;1 for therapy visit and was resting supine in bed upon therapist arrival. Patient identified by name / and presented with continuos IV treatment, reporting only mild R knee pain. Patient transfers supine to sit EOB, CGA x 1 and instructed on seated B LE therex. Patient performed R LE heel slide to improve knee flexion, recording 90 degrees AROM, followed by seated marching, LAQ, heel raises x 10 each, AROM on L LE and AAROM on R LE. Patient completed sit to stand transfer CGA and ambulated with use of B axillary crutches, SBA, 100'x 1. Patient demonstrated very slow adia, "step to" gait pattern, requiring v/c to keep his head / eyes up. Patient was also able to perform standing R LE hamstring curl, approx 30 degrees AROM x 5 reps prior to returning to supine in bed with mild fatigue. Patient remained in bed with call light, tray table and telephone. Will continue per POC as tolerated, total treatment time 24 minutes. Jason Ortiz, CIS COORDINATOR
--- NOTE | 2020-05-20 09:00 | NUR ---
case management visits with patient, discussed with him possibly needing home iv antibiotics. he stated he would want to administer them at home. educated him he would need visiting nurses to teach someone in the home to administer the iv. given choice of home health companies he chose [facility], will send a referral to [facility] for when patient is discharged, case management will follow
--- NOTE | 2020-05-20 12:10 | NUR ---
PROCESSING TECHNICIAN FAXED REFERRAL TO [facility]. WILL NEED FACE TO FACE.
--- NOTE | 2020-05-20 12:59 | NUR ---
PHYSICAL THERAPY Patient was out of his room for surgery this pm when attempted second therapy visit. Will continue per POC as able. Jason Ortiz, SHORT STORY WRITER
--- NOTE | 2020-05-20 13:46 | NUR ---
FACE TO FACE HAS BEEN FAXED TO [facility].
[2020-05-20] MEDS ORDERED: NAFCILLIN2 GM IV (15:17)
--- NOTE | 2020-05-20 20:02 | NUR ---
SPOKE TO . PICC LINE NEEDS REPOSITIONED, PULLED BACK PER SRINI IN SURGERY. OKAY PER TO WAIT UNTIL TOMORROW TO REPOSITION LONG PICC LINE DOES NOT GET USED AND REPOSITIONING CAN BE DONE IN AM. SRINI NOTIFIED.
--- NOTE | 2020-05-20 20:24 | NUR ---
PO NORCO GIVEN FOR C/O ACHING IN R KNEE RATED 3/10. WILL MONITOR EFFECTIVENESS. CALL LIGHT IN REACH.
--- NOTE | 2020-05-20 20:36 | NUR ---
SRINI HERE TO REPOSITION PICC AGAIN. STAT CXR ORDERED. AWAITING RESULTS. IV ABX INFUSING THROUGH PERIPHERAL IV IN R HAND.
--- NOTE | 2020-05-20 21:10 | NUR ---
PER SRINI, PICC COILED ON CXR. WILL HAVE TO ATTEMPT REPOSITIONING/REPLACING IN THE MORNING. DO NOT USE PICC. PERIPHERAL IV SITE IN R HAND TO BE USED UNTIL PICC OKAY TO USE.
--- NOTE | 2020-05-20 21:20 | NUR ---
EARLIER MEDS EFFECTIVE PER PT. WILL MONITOR. CALL LIGHT IN REACH.
[2020-05-21] VITALS: BP 153/81
--- NOTE | 2020-05-21 01:11 | NUR ---
PT ASLEEP IN BED. NO S/S OF DISTRESS NOTED. WILL MONITOR. CALL LIGHT IN REACH.
--- NOTE | 2020-05-21 06:40 | NUR ---
PT'S BSG 169. PT REQUESTING TO WAIT FOR INSULIN UNTIL HE EATS BREAKFAST. DENIES ANY OTHER NEEDS AT THIS TIME.
--- NOTE | 2020-05-21 07:00 | NUR ---
ARRIVED ON SHIFT, REPORT RECEIVED FROM OFFGOING NURSE, ASSUMED CARE OF PATIENT.
--- NOTE | 2020-05-21 07:30 | NUR ---
INTRODUCED SELF TO PATIENT, BED IN LOW POSITION WITH WHEEL LOCKS ENGAGED, SIDE RAILS UP X 2 FOR TURNING AND REPOSITIONING, CALL LIGHT WITHIN REACH, NURSE IN TO REPOSITION PICC LINE, REQUESTED STAT CHEXT XRAY FOR PATIENT TO CHECK PLACEMENT, NO NEEDS VOICED AT THIS TIME WHITE BOARD UPDATED.
[2020-05-21 08:00] VITALS: BP 175/80
--- NOTE | 2020-05-21 09:30 | NUR ---
case management received a script for patient's home iv antibiotics. called and spoke to Gala at [facility]. patient's information faxed to [facility]. will await return call of [facility] for patient's cost of home iv antibiotcs. case management also contacted [facility] and educated them patient is a possibly discharge to home day with iv medications, case management will follow
--- NOTE | 2020-05-21 10:40 | NUR ---
PHYSICAL THERAPY Patient seen this am 1;1 for therapy visit and was resting supine in bed following IV treatment, upon therapist arrival. patient identified this morning by name / and reports only mild R knee stiffness, with mild 2/10 c/o pain. Patient was Independent with all transfers and ambulates with use of B Axillary crutches, 125'x 2, SBA, to stairway for step training. Patient demonstrated slow, step to gait pattern, needing v/c for increased heel strike / stride. Patient navigated up/down 10 steps, single handrail support, SBA, demonstrating single step adia. Patient stated he has used crutches before and feels safe on the stairs. Patient returned to EOB sit and remained reporting no new c/o's with call light, tray table, cell phone. Patient also stated he hopes to be d/c this afternoon and will continue per POC as able. Jason Ortiz, ASSOCIATE PROFESSOR OF COUNSELING
--- NOTE | 2020-05-21 11:55 | NUR ---
case management received a call from Tika at [facility]. she stated everthing is ready to be delivered to patient at home, Tika talked with Nancy at [facility] and they are also able to see patient. educated Tika patient can receive his 12pm dose of iv antibiotic and start of home infusions will be 4pm today. Tika stated she will call patient and confirm his address so medications can be delivered
--- NOTE | 2020-05-21 13:43 | NUR ---
Discharge instructions reviewed with patient/family. Patient receptive and verbalizes understanding. Follow-up care arranged. Written instructions given to patient/family, PERIPHERAL IV REMOVED, PATIENT IS NON-MONITORED, PATIENT AWARE HOME HEALTH WILL BE OUT THIS AFTERNOON, TAKEN OUT VIA W/C BY NURSE. NEERAJ BECKER
--- NOTE | 2020-05-21 14:13 | NUR ---
PHYSICAL THERAPY TREATMENT TIME: OUT 12:23 PM 15 MINUTES PRESENTATION: Patient presented to therapy in supine with head of bed elevated Patient gives informed consent for treatment Patient idenified by name and on wristband Patient reports minimal pain IV infusing COMPLAINTS: R LE minimal pain WB STATUS: WBAT on R LE ASSISTIVE DEVICE: Wh Walker TRANSFERS: Supine <> sitting EOB: SBA STS from EOB: SBA TREATMENT: Gait with Wh Walker with CGA X 1 for 120' x 1 with Bilateral Crutches RESPONSE TO TREATMENT: Patient ambulated a significant distant of 120' x 1 with no increased pain or other difficulty. CONCLUSION: Patient left in supine in bed with head of bed elevated and call light within reach. VEE DEL REAL WEB DEVELOPMENT INTERN
[2020-05-22] MEDS ORDERED: XARELTO1 EACH PO (00:28)
--- NOTE | 2020-05-22 07:42 | NUR ---
PHYSICAL THERAPY CO-SIGN I approve of the Physical Therapy notes written above. Jacque Davis PT
== END 2020-05-21 13:43 | disposition home or self-care (01) | DRG 854 ==
LOC: ED 15:34 → 4E 17:42
PROVIDERS: Emergency Medicine; Internal Medicine; Orthopaedic Surgery; ADMIT Internal Medicine; ATTEND Internal Medicine
PROC: 0SBC0ZZ Excision of Right Knee Joint, Open Approach (ICD-10-PCS; principal; 2020-05-17)
PROC: 0S9C0ZZ Drainage of Right Knee Joint, Open Approach (ICD-10-PCS; 2020-05-18)
PROC: 0LBQ0ZZ Excision of Right Knee Tendon, Open Approach (ICD-10-PCS; 2020-05-18)
PROC: 05HY33Z Insertion of Infusion Device into Upper Vein, Percutaneous Approach (ICD-10-PCS; 2020-05-20)
PROC: B24BZZ4 Ultrasonography of Heart with Aorta, Transesophageal (ICD-10-PCS; 2020-05-21)
DX: A41.9 Sepsis, unspecified organism (principal); E87.1 Hypo-osmolality and hyponatremia; E44.0 Moderate protein-calorie malnutrition; L03.115 Cellulitis of right lower limb; L02.415 Cutaneous abscess of right lower limb; E11.65 Type 2 diabetes mellitus with hyperglycemia; E55.9 Vitamin D deficiency, unspecified; E11.42 Type 2 diabetes mellitus with diabetic polyneuropathy; D64.9 Anemia, unspecified; D47.3 Essential (hemorrhagic) thrombocythemia; E87.6 Hypokalemia; M70.41 Prepatellar bursitis, right knee; E78.5 Hyperlipidemia, unspecified; E66.9 Obesity, unspecified; Z68.30 Body mass index [BMI] 30.0-30.9, adult; Z78.9 Other specified health status; Z89.422 Acquired absence of other left toe(s); Z82.49 Family history of ischemic heart disease and other diseases of the circulatory system; Z80.52 Family history of malignant neoplasm of bladder

== ENCOUNTER → 2020-05-16 | Outpatient (CLI) | payer OTHER ==
[~2020-05-16] MED LIST changes: +NAFCILLIN2 GM IV; +VITAMIN D31250 MC1 PO; +XARE15TA PO; +XARELTO1 EACH PO
[2020-05-17 06:12] LABS: HEP B CORE AB, IGM Negative (Negative); HEPATITIS B SURFACE AG Negative (Negative); HEPATITIS C VIRUS ANTIBODY <0.1 s/co (0.0-0.9)
[2020-05-17 07:06] LABS: RHEUMATOID ARTHRITIS FACTOR 11.9 IU/mL (0.0-13.9)
[2020-05-17 13:06] LABS: ANTI-RNP ANTIBODIES <0.2 AI (0.0-0.9)
[2020-05-18 00:06] LABS: PTT-LA 45.5 sec (0.0-51.9)
[2020-05-18 02:10] LABS: CCP ANTIBODIES IGG/IGA 8 units (0-19)
[2020-05-18 08:08] LABS: DVVTMIXRFX CHG; LUPUS DRVVT 61.7 sec (0.0-47.0)
[2020-05-18 09:10] LABS: LUPUS REFLEX INTERPRETATION Comment: (.)
[2020-05-21 19:10] LABS: HLA-B27 ANTIGEN Negative (.)
== END | disposition home or self-care (01) ==
LOC: LAB 09:33
PROVIDERS: ATTEND Orthopaedic Surgery
DX: M25.461 Effusion, right knee (principal); R79.82 Elevated C-reactive protein (CRP)

== ENCOUNTER 2020-05-21 20:31 | Emergency (ER) | payer OTHER ==
[~2020-05-21 20:31] MED LIST changes: +ASPIRIN ADULT L81 M1 PO; +ATORVASTATIN CA40 M1 PO; +BASAG SOL SQ; +NAFCILLIN2 GM IV
[2020-05-22] MEDS ORDERED: XARELTO1 EACH PO ×2 (00:28)
== END 2020-05-22 01:30 | disposition home or self-care (01) ==
LOC: ED 20:31
DX: A08.4 Viral intestinal infection, unspecified (principal); F17.200 Nicotine dependence, unspecified, uncomplicated; Z79.899 Other long term (current) drug therapy

== ENCOUNTER 2020-05-25 17:07 | Inpatient (IN) | payer OTHER ==
[~2020-05-25] VITALS: Ht 182.8 cm; Wt 104.3 kg
[~2020-05-25 17:07] MED LIST changes: +XARELTO1 EACH PO
[2020-05-25 17:14] VITALS: BP 166/47
[2020-05-25 18:44] LABS: BASO # 0.1 10*3/uL (0.0-0.1); BASO % 0.8 % (0.0-1.0); EOS # 0.2 10*3/uL (0.0-0.4); EOS % 1.7 % (1.0-4.0); HEMATOCRIT 28.7 % (42.0-52.0); LYMPH # 1.9 10*3/uL (1.3-4.4); LYMPH % 19.3 % (27.0-41.0); MEAN CELL VOLUME 84.2 fl (80.0-94.0); MEAN CORPUSCULAR HGB 26.4 pg (27.0-31.0); MEAN CORPUSCULAR HGB CONC 31.4 g/dl (33.0-37.0); MEAN PLATELET VOLUME 10.8 fl (9.6-12.3); MONO # 0.8 10*3/uL (0.1-1.0); MONO % 7.7 % (3.0-9.0); NEUT % 70.1 % (47.0-73.0); PLATELET COUNT AUTOMATED 383 10*3/uL (130-400); RED BLOOD COUNT 3.41 10*6/uL (4.50-5.90); RED CELL DISTRI WIDTH 12.6 % (0-14.5)
[2020-05-25 18:55] LABS: ACT PARTIAL THROMBO TIME 30.6 SECONDS (20.0-32.1); INTERNATIONAL NORM RATIO 1.2 (2.0-3.5)
[2020-05-25 19:03] LABS: ALBUMIN 1.7 gm/dl (3.1-4.5); ALKALINE PHOSPHATASE 69 U/L (45-117); BUN 12 mg/dl (7-24); CHLORIDE 100 mmol/L (98-107); CREATININE 1.09 mg/dL (0.70-1.30); LIPASE 73 U/L (73-393); POTASSIUM 2.7 mmol/L (3.5-5.1); SGOT/AST 12 IU/L (3-35); SGPT/ALT 12 U/L (12-78); SODIUM 138 mmol/L (136-145); TOTAL PROTEIN 7.1 gm/dL (6.4-8.2)
[2020-05-25 19:05] LABS: TROPONIN I < 0.015 ng/ml (<0.045)
--- NOTE | 2020-05-25 19:15 | NUR ---
Transfer of care from Jenae vieyra.
--- NOTE | 2020-05-25 19:30 | NUR ---
Per cameron brennan ok for pt to have home antibiotcs infusing in left picc at this time.
[2020-05-25 19:57] VITALS: BP 180/73
--- NOTE | 2020-05-25 19:58 | NUR ---
In to see pt at this time.Pt states he has antibiotics infusing in left picc at this time.Pt has left ac 20 gauge infusing fluids at this time with a good blood return.Pt has diminshed lung sounds at this time and bs x4.Pt has bubba wrap noted on right knee at this time and dorsal pedal pulses present x4.
[2020-05-25 20:32] VITALS: BP 175/82
--- NOTE | 2020-05-25 20:45 | NUR ---
In to see pt at this time and pt still does not need to void at this time.
--- NOTE | 2020-05-25 20:55 | NUR ---
Pt to ct scan.
[2020-05-25 21:37] VITALS: BP 175/78
--- NOTE | 2020-05-25 21:37 | NUR ---
In to see pt at this time and pt states he is doing ok at this time.
[2020-05-25 21:43] LABS: BILIRUBIN Negative (Negative); BLOOD 1+ (Negative); CLARITY Clear (Clear); COLOR Yellow (Yellow); GLUCOSE Trace (Negative); KETONE Negative (Negative); LEUKO ESTERASE Negative (Negative); NITRITE Negative (Negative); SPECIFIC GRAVITY 1.015 (1.001-1.030); UROBILINOGEN 0.2 E.U./dl (0.0-1.0)
[2020-05-25 21:56] LABS: BACTERIA TRACE; EPITHELIAL CELLS 0-2
[2020-05-25 22:06] VITALS: BP 167/75
--- NOTE | 2020-05-25 23:00 | NUR ---
in to see pt.Aware of pt with increased blood pressure at this time.Ok for pt to have home antibiotic at this time into left picc.
--- NOTE | 2020-05-25 23:00 | NUR ---
Right knee dressing taken down at this time.Pt has surgical wound noted on right anterior knee with natacha,and suctures which are located on top lateraL part of knee.Area is clean with scant brown drainage noted on dressing.Abd pad , 4x4 gauze and kerlix applied at this time with bubba wrap placed on top.Pt also has toenail missing on left 3rd toe with scant old bloody drainage noted.Pt denines any other wounds at this time and is refusing wound photos.
[2020-05-25 23:32] VITALS: BP 146/78
[2020-05-25] MEDS ORDERED: VITAMIN D31250 MC1 PO (23:38)
[2020-05-25] MEDS ORDERED: NAFCILLIN2 GM IV (23:41)
--- NOTE | 2020-05-26 00:30 | NUR ---
In to see pt at this time.Pt resting comfortably in bed at this time and all siderails up.Pt offered water and crackers at this time for a snack.
[2020-05-26 01:00] VITALS: BP 155/94
--- NOTE | 2020-05-26 02:27 | NUR ---
Pt up to bathroom and voided.Pt states he has some nausea and has been medicated at this time.
[2020-05-26] MEDS ORDERED: XARE15TA PO (02:31)
[2020-05-26 03:11] VITALS: BP 117/84; BP 172/88
[2020-05-26 05:29] LABS: ALBUMIN 1.6 gm/dl (3.1-4.5); ALKALINE PHOSPHATASE 72 U/L (45-117); BUN 11 mg/dl (7-24); CHLORIDE 101 mmol/L (98-107); CREATININE 1.03 mg/dL (0.70-1.30); POTASSIUM 3.1 mmol/L (3.5-5.1); SGOT/AST 14 IU/L (3-35); SGPT/ALT 12 U/L (12-78); SODIUM 139 mmol/L (136-145); TOTAL PROTEIN 6.8 gm/dL (6.4-8.2)
[2020-05-26 06:03] LABS: BASO # 0.1 10*3/uL (0.0-0.1); BASO % 0.7 % (0.0-1.0); EOS # 0.2 10*3/uL (0.0-0.4); EOS % 1.8 % (1.0-4.0); HEMATOCRIT 29.3 % (42.0-52.0); LYMPH # 1.5 10*3/uL (1.3-4.4); LYMPH % 16.6 % (27.0-41.0); MEAN CELL VOLUME 85.7 fl (80.0-94.0); MEAN CORPUSCULAR HGB 26.6 pg (27.0-31.0); MEAN CORPUSCULAR HGB CONC 31.1 g/dl (33.0-37.0); MEAN PLATELET VOLUME 11.4 fl (9.6-12.3); MONO # 0.7 10*3/uL (0.1-1.0); MONO % 7.3 % (3.0-9.0); NEUT # 6.7 10*3/uL (2.3-7.9); NEUT % 73.3 % (47.0-73.0); PLATELET COUNT AUTOMATED 376 10*3/uL (130-400); RED BLOOD COUNT 3.42 10*6/uL (4.50-5.90); RED CELL DISTRI WIDTH 12.9 % (0-14.5); WHITE BLOOD COUNT 9.1 10*3/uL (4.8-10.8)
[2020-05-26 06:20] VITALS: BP 178/81
--- NOTE | 2020-05-26 07:05 | NUR ---
PATIENT REPORT FROM SONA ESCALONA AT THIS TIME. PATIENT LAYING IN BED APPEARS IN NO DISTRESS. WILL CONTINUE TO MONITOR.
--- NOTE | 2020-05-26 07:14 | NUR ---
Transfer of care to Brit vieyra.
[2020-05-26 08:31] VITALS: BP 173/62
--- NOTE | 2020-05-26 16:38 | NUR ---
24 HR chart check completed.
--- NOTE | 2020-05-26 18:36 | NUR ---
DR MAHONEY CALLED FOR MEDICATION ORDERS. PATIENT MED LIST WAS DONE LAST NIGHT AND MEDS WERE NOT ORDERED. PATIENT BROUGHT THIS TO OUR ATTENTION. DR MAHONEY STATES HE WILL LOOK AT THE MEDS.
--- NOTE | 2020-05-26 20:00 | NUR ---
PT WATCHING TV AT THIS TIME. CALL LIGHT IN REACH. APARNA GARNER RN.
--- NOTE | 2020-05-27 01:15 | NUR ---
0100 PT WAS C/O RIGHT KNEE PAIN, NORCO OFFERD. RIGHT KNEE WRAPPED WITH ABD AND ANDIE WRAP. APARNA GARNER RN.
[2020-05-27 01:16] VITALS: BP 122/78
--- NOTE | 2020-05-27 04:59 | NUR ---
PT SLEEPING WILL CONTINUE TO MONITOR. APARNA GARNER RN.
--- NOTE | 2020-05-27 10:26 | NUR ---
DR BACK IN TO SEE PT AFTER RECEIVING CONSULT. PT IS SCHEULED FOR OR TOMORROW FOR I&D OF RIGHT KNEE
--- NOTE | 2020-05-27 10:30 | NUR ---
CONSULT CALLED TO DR VILLANUEVA OFFICE. RETURN CALL FROM DR VILLANUEVA WHO STATES SHE WILL SEE THE PT TOMORROW.
[2020-05-27 12:00] VITALS: BP 159/81
--- NOTE | 2020-05-27 12:39 | NUR ---
Chuck Boner in to talk to patient. Patient states lives at HOME with A FRIEND SOMETIMES. There are FEW steps in the home. Physician: DAVID [facility]: [facility] Home health services: NONE Patient's level of ADLs: INDEPENDENT Patient has working utilities: YES DME: RECEIVING HOME IV ANTIBIOTICS AT THIS TIME Follow-up physician's appointment after d/c: WILL BE MADE BY HOSPITALIST NURSE DIRECTOR ON DISCHARGE Does patient want to access PORTAL?: NO Discharge plan PT LIVES AT HOME HE STATES SOMETIMES ALONE SOMETIMES WITH SOMEONE. HAS [facility] AT THIS TIME BECAUSE HE IS RECEIVING IV ANTIBOTICS. STATES HE WILL RETURN HOME WITH RESUMPTIONS OF [facility]. WILL CONTINUE TO FOLLOW. STATES HE WILL HAVE A RIDE. BOBBI CARDOSO
[2020-05-27 16:00] VITALS: BP 163/73
--- NOTE | 2020-05-27 18:14 | NUR ---
CONSULT CALLED TO DR BARRETO. SPOKE TO DR BARRETO, CURRENT ASSESSMENT PROVIDED. NO NEW ORDERS AT THIS TIME
[2020-05-27 20:00] VITALS: BP 148/80
--- NOTE | 2020-05-27 20:15 | NUR ---
IN TO ASSESS PATIENT. PATIENT PLEASANT AND COOEPRATIVE WITH ASSESSMENT. HAS NO COMPLAINTS AT THIS TIME. PATIENT STATES HE HAS SOME MILD PAIN IN HIS KNEE, BUT OTHER THAN THAT HE FEELS FINE. DENIES NEED FOR PAIN MEDICATION. CALL LIGHT LEFT WITHIN REACH, WILL MONITOR
--- NOTE | 2020-05-27 22:43 | NUR ---
PATIENT STATED THAT HIS ORDER FOR ATB ARE NORMALLY TO RUN CONTINUOUSLY. WHEN READING THE ORDER, UNDER INSTRUCTIONS IT SAID TO RUN CONTINUOUSLY. SPOKE WITH PHARMACIST AND THEY WERE ABLE TO CHANGE THE ORDER AND NOTIFIED THE PATIENT THAT WE DID GET IT SWITCHED SO IT'S BACK TO HIS NORMAL ORDER. ALSO NOTIFIED HIM HE WILL HAVE TO GET SOME FLUIDS BEFORE SURGERY TOMORROW AND THAT HE IS TO BE NPO AFTER MIDNIGHT. PATIENT VERBALIZED UNDERSTANDING. CALL LIGHT WITHIN REACH, WILL MONITOR
--- NOTE | 2020-05-27 22:51 | NUR ---
PRN NORCO GIVEN FOR PT COMPLAINTS OF RIGHT KNEE PAIN RATING IT 5/10. CALL LIGHT WITHIN REACH, WILL MONITOR
--- NOTE | 2020-05-27 23:09 | NUR ---
24 HR chart check completed.
--- NOTE | 2020-05-27 23:45 | NUR ---
PRN NORCO EFFECTIVE, PER PT
[2020-05-28] VITALS (11 sets, daily range): BP systolic 152–182; BP diastolic 58–90
--- NOTE | 2020-05-28 01:43 | NUR ---
PATIENT SLEEPING, NO DISTRESS NOTED, BREATHING IS EASY AND REGULAR. IV FLUIDS AND CONTINUOUS NAFCILLIN INFUSING AT THIS TIME. CALL LIGHT WITHIN REACH, WILL MONITOR
[2020-05-28 06:20] LABS: BASO # 0.1 10*3/uL (0.0-0.1); BASO % 1.3 % (0.0-1.0); EOS # 0.2 10*3/uL (0.0-0.4); EOS % 2.4 % (1.0-4.0); LYMPH # 2.1 10*3/uL (1.3-4.4); LYMPH % 29.7 % (27.0-41.0); MEAN CELL VOLUME 85.3 fl (80.0-94.0); MEAN CORPUSCULAR HGB 26.2 pg (27.0-31.0); MEAN CORPUSCULAR HGB CONC 30.7 g/dl (33.0-37.0); MEAN PLATELET VOLUME 11.1 fl (9.6-12.3); MONO # 0.6 10*3/uL (0.1-1.0); MONO % 7.9 % (3.0-9.0); NEUT # 4.2 10*3/uL (2.3-7.9); NEUT % 58.3 % (47.0-73.0); PLATELET COUNT AUTOMATED 392 10*3/uL (130-400); WHITE BLOOD COUNT 7.2 10*3/uL (4.8-10.8)
[2020-05-28 06:45] LABS: BUN 11 mg/dl (7-24); CHLORIDE 106 mmol/L (98-107); POTASSIUM 3.2 mmol/L (3.5-5.1); SODIUM 141 mmol/L (136-145)
[2020-05-28 06:48] LABS: CREATININE 1.21 mg/dL (0.70-1.30)
--- NOTE | 2020-05-28 07:13 | NUR ---
PHYSICAL THERAPY Screen received pt admitte with infected/septic bursitis of R knee and pneumonia being followed by Ortho MD will follow as appropriate per MD orders Jacque Davis PT
--- NOTE | 2020-05-28 08:00 | NUR ---
RESTING IN BED WITH HOB ELEVATED. NO C/O PAIN AT THIS TIME. ANDIE WRAP INTACT TO RIGHT KNEE. NPO FOR PROCEDURE THIS AM. CALL LIGHT IN REACH. SEE SHIFT ASSESSMENT.
--- NOTE | 2020-05-28 09:00 | NUR ---
SURGERY ON THE FLOOR TO ESCORT PT VIA BED.
--- NOTE | 2020-05-28 11:08 | NUR ---
Received resume order for [facility], faxed order and clinicals.
--- NOTE | 2020-05-28 13:36 | NUR ---
1328- MEDICATED FOR C/O POST-OP RIGHT KNEE PAIN
--- NOTE | 2020-05-28 14:00 | NUR ---
PT RETURNED TO FLOOR VIA BED. ICE TO RIGHT KNEE. SCD'S APPLIED. NO C/O AT THIS TIME. CALL LIGHT IN REACH.
--- NOTE | 2020-05-28 15:15 | NUR ---
PT INSTRUCTED ON USE OF INCENTIVE SPIROMETRY. PT DEMONSTRATED PROPER TECHNIQUE AND ACHIEVED 4075 CC WITH EASE. PT INSTRUCTED TO USE 1 1-2 HR W/A.
--- NOTE | 2020-05-28 16:10 | NUR ---
PT RESTING IN BED. BSG-173, SEE EMAR. NO C/O AT THIS TIME. ICE ON RIGHT KNEE. CALL LIGHT IN REACH.
--- NOTE | 2020-05-28 17:35 | NUR ---
PHYSICAL THERAPY Evbasilia received pt S/P surgery/debriedment of RLE/knee due to abcess/infection today spoke with nsg will follow in the AM Jacque Davis PT
--- NOTE | 2020-05-28 18:00 | NUR ---
PT TOLERATING IV MED. NO C/O AT THIS TIME. KNEE IMMOBILIZER IN USE. CALL LIGHT IN REACH.
--- NOTE | 2020-05-28 20:28 | NUR ---
PATIENTS FAMILY MEMBER/FRIEND NORI IN PATIENTS CRUTCHES TO ASSIST PATIENT WITH AMBULATION
--- NOTE | 2020-05-28 20:30 | NUR ---
PATIENT DENIES ANY NEED FOR PAIN MEDICATION. STATES HIS PAIN IS 2/10 AND ISN'T REALLY THERE BUT OCCASIONALLY IT WILL FLAIR UP. ENCOURAGED PATIENT TO ASK FOR PAIN MEDICATION IF NEEDED. PATIENT VERBALIZED UNDERSTANDING
--- NOTE | 2020-05-28 21:39 | NUR ---
PATIENT ABLE TO GET UP AND AMBULATE WITH CRUTCHES.
--- NOTE | 2020-05-28 23:16 | NUR ---
PRN NORCO GIVEN FOR PT COMPLAINTS OF PAIN IN THE RIGHT KNEE RATING IT 7/10. CALL LIGHT WITHIN REACH, WILL MONITOR
[2020-05-29] VITALS: BP 166/80
--- NOTE | 2020-05-29 00:16 | NUR ---
NORCO EFFECTIVE. PATIENT VOICED NO COMPLAINTS. NO OVERT DISTRESS NOTED. RESP ARE EASY AND REGULAR. BED IS LOCKED IN LOWEST POSITION. CALL LIGHT WITHIN REACH
[2020-05-29 06:39] LABS: BUN 10 mg/dl (7-24); CHLORIDE 109 mmol/L (98-107); CREATININE 1.07 mg/dL (0.70-1.30); POTASSIUM 3.7 mmol/L (3.5-5.1); SODIUM 143 mmol/L (136-145)
[2020-05-29 06:53] LABS: BASO # 0.1 10*3/uL (0.0-0.1); BASO % 1.1 % (0.0-1.0); EOS # 0.2 10*3/uL (0.0-0.4); EOS % 2.6 % (1.0-4.0); HEMATOCRIT 28.4 % (42.0-52.0); LYMPH # 2.2 10*3/uL (1.3-4.4); LYMPH % 27.1 % (27.0-41.0); MEAN CELL VOLUME 86.1 fl (80.0-94.0); MEAN CORPUSCULAR HGB 26.7 pg (27.0-31.0); MEAN PLATELET VOLUME 11.1 fl (9.6-12.3); MONO # 0.6 10*3/uL (0.1-1.0); MONO % 6.8 % (3.0-9.0); NEUT # 5.1 10*3/uL (2.3-7.9); NEUT % 62.2 % (47.0-73.0); PLATELET COUNT AUTOMATED 360 10*3/uL (130-400); WHITE BLOOD COUNT 8.1 10*3/uL (4.8-10.8)
[2020-05-29 08:00] VITALS: BP 179/83
--- NOTE | 2020-05-29 09:10 | NUR ---
PHYSICAL THERAPY Physical Therapy evaluation completed on 4th floor with full evaluation to follow. Recommend physical therapy per plan of care and home with f/u for therpay per Ortho MD upon discharge. Thank you for this referral. Jacque Davis PT
--- NOTE | 2020-05-29 11:52 | NUR ---
PT WILL RETURN HOME ON DISCHARGE WITH RESUMPTION OF [facility]. WILL NEED RESUME ORDER TO [facility] TO CONTINUE IV ANTIBIOTICS AT HOME. WILL CONTINUE TO FOLLOW.
[2020-05-29 12:00] VITALS: BP 177/82
[2020-05-29 16:00] VITALS: BP 186/88
[2020-05-29 17:35] VITALS: BP 166/69
[2020-05-29 20:00] VITALS: BP 158/90
--- NOTE | 2020-05-29 23:47 | NUR ---
PATIENT MEDICATED WITH NORCO FOR C/O 5/10 RLE PAIN. WILL MONITOR
[2020-05-30] VITALS (9 sets, daily range): BP systolic 162–190; BP diastolic 80–100
[2020-05-30 06:47] LABS: CHLORIDE 108 mmol/L (98-107); POTASSIUM 3.7 mmol/L (3.5-5.1); SODIUM 141 mmol/L (136-145)
[2020-05-30 06:57] LABS: BUN 12 mg/dl (7-24); CREATININE 1.11 mg/dL (0.70-1.30)
--- NOTE | 2020-05-30 11:00 | NUR ---
PHYSICAL THERAPY Patient seen this am 1;1 for therapy visit and was supine in bed upon therapist arrival. Patient identified by name / and reports no c/o's pain at this time. Patient is WBAT on R LE, with use of R knee Immobilizer brace when out of bed / ambulating. Patient is Independent with Sam / [place] of brace as he applied brace after transfering supine to sit EOB, SBA. Patient was SBA with sit to stand, use of B axillary crutches, while ambulating 50'x 2, SBA, continuos IV treatment with therapist assist attending to IV pole during gait ex. Patient demonstrated, slow, smooth adia, no LOB and no c/o's pain. Patient did take brief seated rest break between gait trials secondary to mild fatigue and remained EOB following all treatment with call light / cell phone. Will continue per POC as tolerated, total treatment time 16 minutes. Jason Ortiz, DIRECTOR OF FLIGHT OPERATIONS
--- NOTE | 2020-05-30 12:09 | NUR ---
PT WILL RETURN HOME WHEN MEDICALLY STABLE WITH [facility]. PT WAS GETTING IV ANTIBIOTICS PRIOR TO ADMISSION. WAITING ON FINAL CULTURES TO SEE IF THEY NEED TO BE CHANGED. WILL CONTINUE TO FOLLOW.
--- NOTE | 2020-05-30 13:25 | NUR ---
PHYSICAL THERAPY Patient was resting supine in bed this pm when approached for second therapy visit. Patient reports feeling tired from not sleeping well last night, including increased R knee pain, 5/10. Patient requested to stay in bed to rest and will continue per POC as tolerated. Jason Ortiz, RESERVATION AGENT
--- NOTE | 2020-05-30 14:44 | NUR ---
BLOOD PRESSURE 186/92 MANUALLY. APRESOLINE GIVEN PER ONE TIME ORDER.
--- NOTE | 2020-05-30 15:43 | NUR ---
Dr. Richard Kirk notified of results of tissue sample result from rt knee. States he suspected that already and is treating pt.
--- NOTE | 2020-05-30 17:02 | NUR ---
Rechecked pt BP via manual cuff. Result was 178/100. Reveiwed with Dr. PICHARDO. States he will order hydralazine 5 mg iv repeat dose.
--- NOTE | 2020-05-30 18:50 | NUR ---
Rechecked MBP at this time result of 168/80.
--- NOTE | 2020-05-30 20:00 | NUR ---
PATIENT VOICED NO COMPLAINTS. NO OVERT DISTRESS NOTED, RESP ARE EASY AND REGULAR. BED IS LOCKED IN LOWEST POSITION. CALL LIGHT WITHIN REACH.
--- NOTE | 2020-05-30 23:27 | NUR ---
REPORT OBTAINED FROM PREVIOUS RN.
--- NOTE | 2020-05-30 23:32 | NUR ---
CHART CHECK COMPLETE.
[2020-05-31] VITALS: BP 172/79
[2020-05-31 00:28] VITALS: BP 140/76
--- NOTE | 2020-05-31 00:30 | NUR ---
ASSUMED CARE OF PATIENT. PATIENT IS AAOX3 RESTING IN BED WITH EASY AND REGULAR RESPERS ON ROOM AIR. ASSESSMENT IS COMPLETE WITH NO C/O OR S/S OF DISTRESS NOTED AT THIS TIME. BED IS LOW, LOCKED, AND CALL LIGHT IS WITHIN REACH. WILL CONTINUE TO MONITOR, SEE INTERVENTIONS.
--- NOTE | 2020-05-31 04:00 | NUR ---
PATIENT SLEEPING. RESPERS EASY AND REGULAR. CALL LIGHT IS WITHIN REACH.
[2020-05-31 08:00] VITALS: BP 188/89
--- NOTE | 2020-05-31 08:00 | NUR ---
BEDSIDE GLUCOSE 108. NO C/O VOICED AT THIS TIME.
--- NOTE | 2020-05-31 10:15 | NUR ---
PHYSICAL THERAPY Patient seen this am 1:1 for therapy visit and was sitting up on EOB upon therapist arrival. Patient identified by name / and reports only mild 3/[address] Garcia was in this morning to remove a few stitches. Patient has orders for use of R knee Immobilizer brace for all out of bed activities and is Independent with Sam / Doff brace while sitting EOB. Patient presented with IV treatment this session and was Independent with all transfers. Patient ambulated without AD, 100'x 2, demonstrating slow adia, decreased stride. Patient also safely navigated up / down 3 steps, single handrail support, SBA, demonstrating single step sequence and Good safety awareness. Patient returned to supine in bed and remained with call light, tray table, cell phone. Will continue per POC as tolerated, total treatment time 17 minutes. Jason Ortiz, DUCT CLEANER
--- NOTE | 2020-05-31 11:00 | NUR ---
PT WILL RETURN HOME ON DISCHARGE WITH RESUMPTION OF [facility]. IF PT IS CONTINUE NAFCILLIN AT HOME PRIOR TO ADMISSION, WILL NEED ORDER TO SEND TO [facility]. WILL CONTINUE TO FOLLOW.
[2020-05-31] MEDS ORDERED: AMLODIPINE BESYL5 MG PO (11:28)
[2020-05-31] MEDS ORDERED: Zestril,Prinivi40 MG PO (11:28)
[2020-05-31 12:00] VITALS: BP 182/91
--- NOTE | 2020-05-31 13:55 | NUR ---
PHYSICAL THERAPY Patient was resting supine in bed when approached this pm for second therapy visit. Patient states he is waiting on Nurse to come back with new BP meds as his last recorded blood pressure was high. Patient requested to relax in bed this afternoon and will continue per POC as able. Jason Ortiz, MACHINIST BENCH
--- NOTE | 2020-05-31 14:33 | NUR ---
PT ORDERED NEW BP MEDICATION. PO BP MEDICATION GIVEN, PT TOLERATED WELL. WILL REASSESS BP
[2020-05-31 15:13] VITALS: BP 180/70
--- NOTE | 2020-05-31 15:13 | NUR ---
BP RECHECKED PER DR PICHARDO. BP CHARTED.
--- NOTE | 2020-05-31 15:40 | NUR ---
PHYSICAL THERAPY CO-SIGN I approve of the Physical Therapy notes written above. Jacque Davis PT
--- NOTE | 2020-05-31 16:11 | NUR ---
PT GIVEN PO BP MEDICATION PRESCRIBED BY DR PICHARDO. WILL REASSESS BP.
[2020-05-31 16:33] VITALS: BP 170/76
--- NOTE | 2020-05-31 16:33 | NUR ---
BP REASSESSED. DR PICHARDO AWARE.
--- NOTE | 2020-05-31 16:55 | NUR ---
PT MADE AWARE PHYSICANS [facility] FOR HIM TO STAY AND HAVE COSULT FOR BP MANAGEMENT HIS BP IS STILL ELEVATED EVEN AFTER MULTIPLE MEDCATIONS TO REDUCE. EXPLAINED TO PT RISK OF UNCONTROLLED BP MANANGEMENT AND PT STATES "IF I COULD JUST GO HOME MY BP WOULD NOT BE THIS HIGH" PT REQUEST TO LEAVE AMA HE HAS LEFT AMA BEFORE HE STATES. PT INSTRUCTED ON AMA. DR PICHARDO CALLED AND MADE AWARE OF PT'S DISPOSITION. DR PICHARDO STATES HE WILL HAVE TO GO AMA THEY FEEL HE NEEDS FURTHER EVALUATION. PT REFUSES TO STAY AND STATES HE WILL FOLLOW UP AN OUTPATIENT. PT PROVIDED AMA PAPERS TO SIGN. ANGEL BROOKE RN [employer] SYSTEMS ENGINEER NOTIFIED AND IS AWARE. PT WILL LEAVE AMA WITH PICC LINE TO [facility] FOR CONTINUED ANTIBX THERAPY.
== END 2020-05-31 17:59 | disposition left against medical advice (07) | DRG 981 ==
LOC: ED 17:07 → EDHOLD 23:06 → 4E 23:06
PROVIDERS: Internal Medicine; Physician Assistant; Student in an Organized Health Care Education/Training Program; ADMIT Internal Medicine; ATTEND Internal Medicine
PROC: 0LBQ0ZZ Excision of Right Knee Tendon, Open Approach (ICD-10-PCS; principal; 2020-05-28)
DX: J15.211 Pneumonia due to Methicillin susceptible Staphylococcus aureus (principal); E43 Unspecified severe protein-calorie malnutrition; M00.9 Pyogenic arthritis, unspecified; E11.65 Type 2 diabetes mellitus with hyperglycemia; D64.9 Anemia, unspecified; E87.6 Hypokalemia; I10 Essential (primary) hypertension; E78.5 Hyperlipidemia, unspecified; E55.9 Vitamin D deficiency, unspecified; E11.40 Type 2 diabetes mellitus with diabetic neuropathy, unspecified; M71.161 Other infective bursitis, right knee; E66.9 Obesity, unspecified; Z83.3 Family history of diabetes mellitus; Z82.49 Family history of ischemic heart disease and other diseases of the circulatory system; Z79.4 Long term (current) use of insulin; Z79.82 Long term (current) use of aspirin; Z80.52 Family history of malignant neoplasm of bladder; Z68.31 Body mass index [BMI] 31.0-31.9, adult

== ENCOUNTER → 2020-06-27 | Outpatient (CLI) | payer OTHER ==
[~2020-06-27] MED LIST changes: +AMLODIPINE BESYL5 MG PO; +VITAMIN D31250 MC1 PO; +XARE15TA PO; +Zestril,Prinivi40 MG PO
== END | disposition home or self-care (01) ==
LOC: RESCLI 04:04
PROVIDERS: ATTEND Internal Medicine
DX: I10 Essential (primary) hypertension (principal); E11.65 Type 2 diabetes mellitus with hyperglycemia; E78.5 Hyperlipidemia, unspecified; E55.9 Vitamin D deficiency, unspecified; M71.161 Other infective bursitis, right knee; E11.21 Type 2 diabetes mellitus with diabetic nephropathy

== ENCOUNTER → 2020-07-30 | Outpatient (CLI) | payer OTHER ==
[2020-07-30 14:14] LABS: BASO # 0.1 10*3/uL (0.0-0.1); EOS # 0.1 10*3/uL (0.0-0.4); HEMATOCRIT 38.3 % (42.0-52.0); LYMPH # 2.4 10*3/uL (1.3-4.4); MEAN CELL VOLUME 85.7 fl (80.0-94.0); MEAN CORPUSCULAR HGB 27.3 pg (27.0-31.0); MEAN CORPUSCULAR HGB CONC 31.9 g/dl (33.0-37.0); MEAN PLATELET VOLUME 11.9 fl (9.6-12.3); MONO # 0.5 10*3/uL (0.1-1.0); MONO % 7.8 % (3.0-9.0); NEUT # 3.7 10*3/uL (2.3-7.9); NEUT % 54.1 % (47.0-73.0); PLATELET COUNT AUTOMATED 201 10*3/uL (130-400); RED BLOOD COUNT 4.47 10*6/uL (4.50-5.90); RED CELL DISTRI WIDTH 14.3 % (0-14.5); WHITE BLOOD COUNT 6.9 10*3/uL (4.8-10.8)
[2020-07-30 14:29] LABS: ALBUMIN 2.8 gm/dl (3.1-4.5); ALKALINE PHOSPHATASE 77 U/L (45-117); BUN 40 mg/dl (7-24); CHLORIDE 110 mmol/L (98-107); CREATININE 1.43 mg/dL (0.70-1.30); POTASSIUM 4.2 mmol/L (3.5-5.1); SGOT/AST 25 IU/L (3-35); SGPT/ALT 27 U/L (12-78); SODIUM 140 mmol/L (136-145); TOTAL PROTEIN 6.8 gm/dL (6.4-8.2)
== END | disposition home or self-care (01) ==
LOC: LAB 13:51
PROVIDERS: ATTEND Internal Medicine
DX: M70.50 Other bursitis of knee, unspecified knee (principal)

== ENCOUNTER → 2020-10-09 | Outpatient (CLI) | payer OTHER | END | disposition home or self-care (01) | LOC: RESCLI 03:20 | PROVIDERS: ATTEND Internal Medicine | DX: I10 Essential (primary) hypertension (principal); E78.5 Hyperlipidemia, unspecified; E55.9 Vitamin D deficiency, unspecified; E11.65 Type 2 diabetes mellitus with hyperglycemia; E66.9 Obesity, unspecified; Z79.82 Long term (current) use of aspirin; Z79.899 Other long term (current) drug therapy ==

== ENCOUNTER → 2020-10-09 | Outpatient (CLI) | payer OTHER ==
[2020-10-09 16:10] LABS: BASO % 0.6 % (0.0-1.0); EOS # 0.1 10*3/uL (0.0-0.4); EOS % 1.8 % (1.0-4.0); HEMATOCRIT 39.4 % (42.0-52.0); LYMPH # 2.3 10*3/uL (1.3-4.4); LYMPH % 34.4 % (27.0-41.0); MEAN CELL VOLUME 85.1 fl (80.0-94.0); MEAN CORPUSCULAR HGB CONC 31.7 g/dl (33.0-37.0); MEAN PLATELET VOLUME 12.5 fl (9.6-12.3); MONO # 0.5 10*3/uL (0.1-1.0); MONO % 7.8 % (3.0-9.0); NEUT # 3.7 10*3/uL (2.3-7.9); NEUT % 55.3 % (47.0-73.0); PLATELET COUNT AUTOMATED 186 10*3/uL (130-400); RED BLOOD COUNT 4.63 10*6/uL (4.50-5.90); RED CELL DISTRI WIDTH 12.6 % (0-14.5); WHITE BLOOD COUNT 6.7 10*3/uL (4.8-10.8)
[2020-10-09 16:42] LABS: ALBUMIN 3.1 gm/dl (3.1-4.5); ALKALINE PHOSPHATASE 80 U/L (45-117); BUN 33 mg/dl (7-24); CHLORIDE 108 mmol/L (98-107); CREATININE 1.35 mg/dL (0.70-1.30); POTASSIUM 3.7 mmol/L (3.5-5.1); SGOT/AST 28 IU/L (3-35); SGPT/ALT 32 U/L (12-78); SODIUM 141 mmol/L (136-145); TOTAL PROTEIN 6.7 gm/dL (6.4-8.2)
== END | disposition home or self-care (01) ==
LOC: LAB 15:12
PROVIDERS: ATTEND Internal Medicine
DX: E11.65 Type 2 diabetes mellitus with hyperglycemia (principal); I10 Essential (primary) hypertension

== ENCOUNTER → 2020-12-19 | Outpatient (CLI) | payer OTHER | END | disposition home or self-care (01) | LOC: RESCLI 00:46 | PROVIDERS: ATTEND Internal Medicine | DX: E11.65 Type 2 diabetes mellitus with hyperglycemia (principal); E78.5 Hyperlipidemia, unspecified; E55.9 Vitamin D deficiency, unspecified; I82.621 Acute embolism and thrombosis of deep veins of right upper extremity; Z79.82 Long term (current) use of aspirin; Z79.899 Other long term (current) drug therapy; Z98.890 Other specified postprocedural states ==

== ENCOUNTER 2021-07-29 06:12 | Emergency (ER) | payer OTHER ==
[~2021-07-29] VITALS: Ht 182.8 cm; Wt 95.3 kg
[2021-07-29 07:26] LABS: BASO % 0.8 % (0.0-1.0); EOS % 0.3 % (1.0-4.0); HEMATOCRIT 42.3 % (42.0-52.0); LYMPH % 25.6 % (27.0-41.0); MEAN CELL VOLUME 86.9 fl (80.0-94.0); MEAN CORPUSCULAR HGB 27.9 pg (27.0-31.0); MEAN CORPUSCULAR HGB CONC 32.2 g/dl (33.0-37.0); MONO # 0.6 10*3/uL (0.1-1.0); MONO % 14.2 % (3.0-9.0); NEUT # 2.3 10*3/uL (2.3-7.9); NEUT % 58.8 % (47.0-73.0); PLATELET COUNT AUTOMATED 152 10*3/uL (130-400); RED BLOOD COUNT 4.87 10*6/uL (4.50-5.90)
[2021-07-29 07:42] LABS: ALBUMIN 2.9 gm/dl (3.1-4.5); CREATININE 1.9 mg/dL (0.70-1.30); POTASSIUM 4.7 mmol/L (3.5-5.1); TOTAL PROTEIN 6.9 gm/dL (6.4-8.2)
== END 2021-07-29 08:40 | disposition home or self-care (01) ==
LOC: ED 06:12
PROVIDERS: Student in an Organized Health Care Education/Training Program
DX: U07.1 COVID-19 (principal); Z79.899 Other long term (current) drug therapy; Z79.82 Long term (current) use of aspirin

== ENCOUNTER → 2021-11-03 | Outpatient (CLI) | payer OTHER | END | disposition home or self-care (01) | LOC: RESCLI 00:10 | PROVIDERS: ATTEND Internal Medicine Nephrology | DX: E11.65 Type 2 diabetes mellitus with hyperglycemia (principal); I10 Essential (primary) hypertension; E55.9 Vitamin D deficiency, unspecified; I82.401 Acute embolism and thrombosis of unspecified deep veins of right lower extremity; E66.9 Obesity, unspecified; E78.5 Hyperlipidemia, unspecified; Z79.899 Other long term (current) drug therapy ==

== ENCOUNTER → 2021-11-11 | Outpatient (CLI) | payer OTHER ==
[2021-11-11 14:23] LABS: BASO # 0.1 10*3/uL (0.0-0.1); BASO % 0.8 % (0.0-1.0); EOS # 0.1 10*3/uL (0.0-0.4); EOS % 1.2 % (1.0-4.0); HEMATOCRIT 41.7 % (42.0-52.0); LYMPH # 1.9 10*3/uL (1.3-4.4); LYMPH % 26.6 % (27.0-41.0); MEAN CELL VOLUME 85.3 fl (80.0-94.0); MEAN CORPUSCULAR HGB 27.6 pg (27.0-31.0); MEAN CORPUSCULAR HGB CONC 32.4 g/dl (33.0-37.0); MEAN PLATELET VOLUME 11.8 fl (9.6-12.3); MONO # 0.6 10*3/uL (0.1-1.0); MONO % 8.1 % (3.0-9.0); NEUT # 4.6 10*3/uL (2.3-7.9); NEUT % 63.2 % (47.0-73.0); PLATELET COUNT AUTOMATED 206 10*3/uL (130-400); RED BLOOD COUNT 4.89 10*6/uL (4.50-5.90); RED CELL DISTRI WIDTH 13.2 % (0-14.5); WHITE BLOOD COUNT 7.3 10*3/uL (4.8-10.8)
[2021-11-11 14:40] LABS: CREATININE 1.6 mg/dL (0.70-1.30); POTASSIUM 4.6 mmol/L (3.5-5.1); TOTAL PROTEIN 7.5 gm/dL (6.4-8.2)
[2021-11-12 10:07] LABS: CREATININE,URINE 58.5 mg/dL (Not Estab.)
== END | disposition home or self-care (01) ==
LOC: LAB 14:04
PROVIDERS: Internal Medicine; ATTEND Internal Medicine
DX: E11.65 Type 2 diabetes mellitus with hyperglycemia (principal); E55.9 Vitamin D deficiency, unspecified

== ENCOUNTER → 2021-11-25 | Outpatient (CLI) | payer OTHER | END | disposition home or self-care (01) | LOC: RESCLI 00:42 | PROVIDERS: ATTEND Internal Medicine | DX: E11.65 Type 2 diabetes mellitus with hyperglycemia (principal); I10 Essential (primary) hypertension; E55.9 Vitamin D deficiency, unspecified; Z79.899 Other long term (current) drug therapy; Z79.82 Long term (current) use of aspirin ==

== ENCOUNTER → 2022-03-17 | Outpatient (CLI) | payer OTHER | END | disposition home or self-care (01) | LOC: LAB 14:23 | PROVIDERS: ATTEND Internal Medicine | DX: E11.65 Type 2 diabetes mellitus with hyperglycemia (principal) ==

== ENCOUNTER → 2022-04-02 | Outpatient (CLI) | payer OTHER | END | disposition home or self-care (01) | LOC: RESCLI 14:26 | PROVIDERS: ATTEND Student in an Organized Health Care Education/Training Program | DX: E11.65 Type 2 diabetes mellitus with hyperglycemia (principal); E78.5 Hyperlipidemia, unspecified; E55.9 Vitamin D deficiency, unspecified; I12.9 Hypertensive chronic kidney disease with stage 1 through stage 4 chronic kidney disease, or unspecified chronic kidney disease; N18.30 Chronic kidney disease, stage 3 unspecified; E11.22 Type 2 diabetes mellitus with diabetic chronic kidney disease; Z79.899 Other long term (current) drug therapy; Z79.82 Long term (current) use of aspirin ==

== ENCOUNTER → 2022-04-03 | Outpatient (CLI) | payer OTHER ==
[2022-04-03 14:47] LABS: ALKALINE PHOSPHATASE 86 U/L (45-117); BUN 32 mg/dl (7-24); CHLORIDE 108 mmol/L (98-107); CHOLESTEROL 115 mg/dL (<200); CREATININE 1.47 mg/dL (0.70-1.30); LDL CHOLESTEROL 47 mg/dL (9-159); POTASSIUM 3.7 mmol/L (3.5-5.1); SGOT/AST 28 IU/L (3-35); SGPT/ALT 34 U/L (12-78); SODIUM 140 mmol/L (136-145); TOTAL PROTEIN 7.2 gm/dL (6.4-8.2); TRIGLYCERIDES 31 mg/dl (<150)
[2022-04-04 10:07] LABS: CREATININE,URINE 79.7 mg/dL (Not Estab.)
== END | disposition home or self-care (01) ==
LOC: LAB 14:02
PROVIDERS: ATTEND Internal Medicine
DX: E11.65 Type 2 diabetes mellitus with hyperglycemia (principal); E78.5 Hyperlipidemia, unspecified

== ENCOUNTER → 2022-04-21 | Outpatient (CLI) | payer OTHER | END | disposition home or self-care (01) | LOC: RESCLI 13:12 | PROVIDERS: ATTEND Internal Medicine | DX: E11.65 Type 2 diabetes mellitus with hyperglycemia (principal); E11.22 Type 2 diabetes mellitus with diabetic chronic kidney disease; I12.9 Hypertensive chronic kidney disease with stage 1 through stage 4 chronic kidney disease, or unspecified chronic kidney disease; E55.9 Vitamin D deficiency, unspecified; G62.9 Polyneuropathy, unspecified; E78.5 Hyperlipidemia, unspecified; N18.30 Chronic kidney disease, stage 3 unspecified; Z79.899 Other long term (current) drug therapy; Z79.82 Long term (current) use of aspirin ==

== ENCOUNTER 2023-04-16 09:57 | Emergency (ER) | payer OTHER ==
[~2023-04-16] VITALS: Ht 182.8 cm; Wt 104.3 kg
[2023-04-16 11:43] LABS: BASO % 0.6 % (0.0-1.0); EOS # 0.1 10*3/uL (0.0-0.4); EOS % 1.1 % (1.0-4.0); HEMATOCRIT 43.1 % (42.0-52.0); LYMPH # 1.5 10*3/uL (1.3-4.4); LYMPH % 22.7 % (27.0-41.0); MEAN CELL VOLUME 86.2 fl (80.0-94.0); MEAN CORPUSCULAR HGB 28.2 pg (27.0-31.0); MEAN CORPUSCULAR HGB CONC 32.7 g/dl (33.0-37.0); MEAN PLATELET VOLUME 11.9 fl (9.6-12.3); MONO # 0.6 10*3/uL (0.1-1.0); NEUT # 4.2 10*3/uL (2.3-7.9); NEUT % 65.4 % (47.0-73.0); PLATELET COUNT AUTOMATED 181 10*3/uL (130-400); RED CELL DISTRI WIDTH 13.2 % (0-14.5); WHITE BLOOD COUNT 6.4 10*3/uL (4.8-10.8)
[2023-04-16 11:54] LABS: ACT PARTIAL THROMBO TIME 27.6 SECONDS (20.0-32.1)
[2023-04-16 12:04] LABS: POTASSIUM 4.5 mmol/L (3.4-5.1); TOTAL PROTEIN 7.2 gm/dL (6.0-8.0)
[2023-04-16] MEDS ORDERED: VIBRA-TAB100 MG PO (14:46)
== END 2023-04-16 15:14 | disposition home or self-care (01) ==
LOC: ED 09:57
PROVIDERS: Emergency Medicine
DX: L03.032 Cellulitis of left toe (principal); E11.9 Type 2 diabetes mellitus without complications; I10 Essential (primary) hypertension; Z79.4 Long term (current) use of insulin; E78.00 Pure hypercholesterolemia, unspecified; Z98.890 Other specified postprocedural states

== ENCOUNTER → 2023-04-21 | Outpatient (CLI) | payer OTHER ==
[~2023-04-21] MED LIST changes: +VIBRA-TAB100 MG PO
== END | disposition home or self-care (01) ==
LOC: WOUNDCARE 01:20
PROVIDERS: ATTEND Nurse Practitioner Family
DX: E11.621 Type 2 diabetes mellitus with foot ulcer (principal); L97.522 Non-pressure chronic ulcer of other part of left foot with fat layer exposed; L03.90 Cellulitis, unspecified; L84 Corns and callosities; E11.69 Type 2 diabetes mellitus with other specified complication; M86.9 Osteomyelitis, unspecified; E55.9 Vitamin D deficiency, unspecified; E78.5 Hyperlipidemia, unspecified; E66.9 Obesity, unspecified; I10 Essential (primary) hypertension; I25.10 Atherosclerotic heart disease of native coronary artery without angina pectoris; Z86.718 Personal history of other venous thrombosis and embolism

== ENCOUNTER → 2023-05-04 | Outpatient (CLI) | payer OTHER | END | disposition home or self-care (01) | LOC: WOUNDCARE 01:03 | PROVIDERS: ATTEND Nurse Practitioner Family | DX: E11.621 Type 2 diabetes mellitus with foot ulcer (principal); L97.522 Non-pressure chronic ulcer of other part of left foot with fat layer exposed; L03.116 Cellulitis of left lower limb; L84 Corns and callosities; E11.69 Type 2 diabetes mellitus with other specified complication; M86.9 Osteomyelitis, unspecified; E55.9 Vitamin D deficiency, unspecified; I10 Essential (primary) hypertension; E78.5 Hyperlipidemia, unspecified; E66.9 Obesity, unspecified; I25.10 Atherosclerotic heart disease of native coronary artery without angina pectoris; Z86.718 Personal history of other venous thrombosis and embolism ==

== ENCOUNTER → 2023-05-19 | Outpatient (CLI) | payer OTHER | END | disposition home or self-care (01) | LOC: WOUNDCARE 04-27 00:52 | PROVIDERS: ATTEND Nurse Practitioner Family | DX: E11.621 Type 2 diabetes mellitus with foot ulcer (principal); L97.522 Non-pressure chronic ulcer of other part of left foot with fat layer exposed; L03.90 Cellulitis, unspecified; I10 Essential (primary) hypertension; I25.10 Atherosclerotic heart disease of native coronary artery without angina pectoris; E55.9 Vitamin D deficiency, unspecified; E11.69 Type 2 diabetes mellitus with other specified complication; M86.9 Osteomyelitis, unspecified; E78.5 Hyperlipidemia, unspecified; E66.9 Obesity, unspecified; Z86.718 Personal history of other venous thrombosis and embolism; Z68.31 Body mass index [BMI] 31.0-31.9, adult ==

== ENCOUNTER → 2023-06-22 | Outpatient (CLI) | payer OTHER | END | disposition home or self-care (01) | LOC: WOUNDCARE 08:41 | PROVIDERS: ATTEND Nurse Practitioner Family | DX: E11.621 Type 2 diabetes mellitus with foot ulcer (principal); L97.522 Non-pressure chronic ulcer of other part of left foot with fat layer exposed; L84 Corns and callosities; E11.69 Type 2 diabetes mellitus with other specified complication; M86.9 Osteomyelitis, unspecified; E78.5 Hyperlipidemia, unspecified; E66.9 Obesity, unspecified; L03.90 Cellulitis, unspecified; I10 Essential (primary) hypertension; E55.9 Vitamin D deficiency, unspecified; Z86.718 Personal history of other venous thrombosis and embolism; Z68.33 Body mass index [BMI] 33.0-33.9, adult ==

== ENCOUNTER → 2023-06-29 | Outpatient (CLI) | payer OTHER | END | disposition home or self-care (01) | LOC: WOUNDCARE 00:36 | PROVIDERS: ATTEND Nurse Practitioner Family | DX: E11.621 Type 2 diabetes mellitus with foot ulcer (principal); L97.522 Non-pressure chronic ulcer of other part of left foot with fat layer exposed; L84 Corns and callosities; L03.90 Cellulitis, unspecified; I10 Essential (primary) hypertension; E55.9 Vitamin D deficiency, unspecified; E11.69 Type 2 diabetes mellitus with other specified complication; M86.9 Osteomyelitis, unspecified; E78.5 Hyperlipidemia, unspecified; E66.9 Obesity, unspecified; I25.10 Atherosclerotic heart disease of native coronary artery without angina pectoris; Z86.718 Personal history of other venous thrombosis and embolism; Z68.33 Body mass index [BMI] 33.0-33.9, adult ==

== ENCOUNTER → 2023-07-06 | Outpatient (CLI) | payer OTHER | END | disposition home or self-care (01) | LOC: WOUNDCARE 02:25 | PROVIDERS: ATTEND Nurse Practitioner Family | DX: E11.621 Type 2 diabetes mellitus with foot ulcer (principal); L97.522 Non-pressure chronic ulcer of other part of left foot with fat layer exposed; L03.90 Cellulitis, unspecified; I10 Essential (primary) hypertension; E11.69 Type 2 diabetes mellitus with other specified complication; M86.9 Osteomyelitis, unspecified; E55.9 Vitamin D deficiency, unspecified; E78.5 Hyperlipidemia, unspecified; E66.9 Obesity, unspecified; I25.10 Atherosclerotic heart disease of native coronary artery without angina pectoris; Z86.718 Personal history of other venous thrombosis and embolism ==

== ENCOUNTER → 2023-07-14 | Outpatient (CLI) | payer OTHER | END | disposition home or self-care (01) | LOC: WOUNDCARE 01:34 | PROVIDERS: ATTEND Nurse Practitioner Family | DX: E11.621 Type 2 diabetes mellitus with foot ulcer (principal); L97.522 Non-pressure chronic ulcer of other part of left foot with fat layer exposed; L03.90 Cellulitis, unspecified; L84 Corns and callosities; E11.69 Type 2 diabetes mellitus with other specified complication; M86.9 Osteomyelitis, unspecified; E55.9 Vitamin D deficiency, unspecified; E78.5 Hyperlipidemia, unspecified; E66.9 Obesity, unspecified; I10 Essential (primary) hypertension; I25.10 Atherosclerotic heart disease of native coronary artery without angina pectoris; Z86.718 Personal history of other venous thrombosis and embolism ==

== ENCOUNTER → 2023-07-21 | Outpatient (CLI) | payer OTHER | END | disposition home or self-care (01) | LOC: WOUNDCARE 00:59 | PROVIDERS: ATTEND Nurse Practitioner Family | DX: E11.621 Type 2 diabetes mellitus with foot ulcer (principal); L97.522 Non-pressure chronic ulcer of other part of left foot with fat layer exposed; L03.116 Cellulitis of left lower limb; I10 Essential (primary) hypertension; E55.9 Vitamin D deficiency, unspecified; E11.69 Type 2 diabetes mellitus with other specified complication; M86.9 Osteomyelitis, unspecified; E78.5 Hyperlipidemia, unspecified; E66.9 Obesity, unspecified; Z68.33 Body mass index [BMI] 33.0-33.9, adult; Z86.718 Personal history of other venous thrombosis and embolism ==

== ENCOUNTER → 2023-07-28 | Outpatient (CLI) | payer OTHER | END | disposition home or self-care (01) | LOC: WOUNDCARE 01:31 | PROVIDERS: ATTEND Nurse Practitioner Family | DX: E11.621 Type 2 diabetes mellitus with foot ulcer (principal); L97.522 Non-pressure chronic ulcer of other part of left foot with fat layer exposed; L03.90 Cellulitis, unspecified; E55.9 Vitamin D deficiency, unspecified; E11.69 Type 2 diabetes mellitus with other specified complication; M86.9 Osteomyelitis, unspecified; E78.5 Hyperlipidemia, unspecified; E66.9 Obesity, unspecified; I10 Essential (primary) hypertension; I25.10 Atherosclerotic heart disease of native coronary artery without angina pectoris; Z86.718 Personal history of other venous thrombosis and embolism; Z86.73 Personal history of transient ischemic attack (TIA), and cerebral infarction without residual deficits; Z68.33 Body mass index [BMI] 33.0-33.9, adult ==

== ENCOUNTER → 2023-08-04 | Outpatient (CLI) | payer OTHER | END | disposition home or self-care (01) | LOC: WOUNDCARE 01:40 | PROVIDERS: ATTEND Nurse Practitioner Family | DX: E11.621 Type 2 diabetes mellitus with foot ulcer (principal); L97.522 Non-pressure chronic ulcer of other part of left foot with fat layer exposed; L03.90 Cellulitis, unspecified; I10 Essential (primary) hypertension; E55.9 Vitamin D deficiency, unspecified; E11.69 Type 2 diabetes mellitus with other specified complication; M86.9 Osteomyelitis, unspecified; E78.5 Hyperlipidemia, unspecified; E66.9 Obesity, unspecified; Z86.718 Personal history of other venous thrombosis and embolism; Z68.33 Body mass index [BMI] 33.0-33.9, adult ==

== ENCOUNTER → 2023-08-12 | Outpatient (CLI) | payer OTHER | END | disposition home or self-care (01) | LOC: WOUNDCARE 03:54 | PROVIDERS: ATTEND Nurse Practitioner Family | DX: E11.621 Type 2 diabetes mellitus with foot ulcer (principal); L97.522 Non-pressure chronic ulcer of other part of left foot with fat layer exposed; L84 Corns and callosities; L03.90 Cellulitis, unspecified; E11.69 Type 2 diabetes mellitus with other specified complication; M86.9 Osteomyelitis, unspecified; E55.9 Vitamin D deficiency, unspecified; E66.9 Obesity, unspecified; E78.5 Hyperlipidemia, unspecified; I25.10 Atherosclerotic heart disease of native coronary artery without angina pectoris; I10 Essential (primary) hypertension; Z86.718 Personal history of other venous thrombosis and embolism ==

== ENCOUNTER → 2023-08-17 | Outpatient (CLI) | payer OTHER | LOC: WOUNDCARE 02:12 | PROVIDERS: ATTEND Nurse Practitioner Family | DX: E11.621 Type 2 diabetes mellitus with foot ulcer (principal); L97.522 Non-pressure chronic ulcer of other part of left foot with fat layer exposed; E11.69 Type 2 diabetes mellitus with other specified complication; M86.68 Other chronic osteomyelitis, other site; L03.90 Cellulitis, unspecified; L84 Corns and callosities; I10 Essential (primary) hypertension; E55.9 Vitamin D deficiency, unspecified; E78.5 Hyperlipidemia, unspecified; E66.9 Obesity, unspecified; Z68.33 Body mass index [BMI] 33.0-33.9, adult; Z79.4 Long term (current) use of insulin; Z79.82 Long term (current) use of aspirin ==

== ENCOUNTER → 2023-08-24 | Outpatient (CLI) | payer OTHER | END | disposition home or self-care (01) | LOC: WOUNDCARE 01:41 | PROVIDERS: ATTEND Nurse Practitioner Family | DX: E11.621 Type 2 diabetes mellitus with foot ulcer (principal); L97.522 Non-pressure chronic ulcer of other part of left foot with fat layer exposed; L03.90 Cellulitis, unspecified; I10 Essential (primary) hypertension; E11.69 Type 2 diabetes mellitus with other specified complication; M86.68 Other chronic osteomyelitis, other site; E55.9 Vitamin D deficiency, unspecified; E78.5 Hyperlipidemia, unspecified; E66.9 Obesity, unspecified; Z68.33 Body mass index [BMI] 33.0-33.9, adult; Z86.718 Personal history of other venous thrombosis and embolism; Z79.4 Long term (current) use of insulin; Z79.82 Long term (current) use of aspirin ==

== ENCOUNTER → 2023-08-31 | Outpatient (CLI) | payer OTHER | END | disposition home or self-care (01) | LOC: WOUNDCARE 05:53 | PROVIDERS: ATTEND Nurse Practitioner Family | DX: E11.621 Type 2 diabetes mellitus with foot ulcer (principal); L97.522 Non-pressure chronic ulcer of other part of left foot with fat layer exposed; L03.90 Cellulitis, unspecified; I10 Essential (primary) hypertension; L84 Corns and callosities; E11.69 Type 2 diabetes mellitus with other specified complication; M86.68 Other chronic osteomyelitis, other site; E78.5 Hyperlipidemia, unspecified; E55.9 Vitamin D deficiency, unspecified; E66.9 Obesity, unspecified; Z68.33 Body mass index [BMI] 33.0-33.9, adult; Z86.718 Personal history of other venous thrombosis and embolism; Z79.4 Long term (current) use of insulin; Z79.82 Long term (current) use of aspirin ==

== ENCOUNTER → 2023-09-08 | Outpatient (CLI) | payer OTHER | END | disposition home or self-care (01) | LOC: WOUNDCARE 01:41 | PROVIDERS: ATTEND Nurse Practitioner Family | DX: E11.621 Type 2 diabetes mellitus with foot ulcer (principal); L97.522 Non-pressure chronic ulcer of other part of left foot with fat layer exposed; L84 Corns and callosities; L03.90 Cellulitis, unspecified; I25.10 Atherosclerotic heart disease of native coronary artery without angina pectoris; I10 Essential (primary) hypertension; E11.69 Type 2 diabetes mellitus with other specified complication; M86.68 Other chronic osteomyelitis, other site; E55.9 Vitamin D deficiency, unspecified; E66.9 Obesity, unspecified; E78.5 Hyperlipidemia, unspecified; Z68.33 Body mass index [BMI] 33.0-33.9, adult; Z79.4 Long term (current) use of insulin; Z79.82 Long term (current) use of aspirin; Z86.718 Personal history of other venous thrombosis and embolism ==

== ENCOUNTER → 2023-09-15 | Outpatient (CLI) | payer OTHER | END | disposition home or self-care (01) | LOC: WOUNDCARE 02:06 | PROVIDERS: ATTEND Nurse Practitioner Family | DX: E11.621 Type 2 diabetes mellitus with foot ulcer (principal); L97.522 Non-pressure chronic ulcer of other part of left foot with fat layer exposed; L03.116 Cellulitis of left lower limb; L84 Corns and callosities; E55.9 Vitamin D deficiency, unspecified; E11.69 Type 2 diabetes mellitus with other specified complication; M86.9 Osteomyelitis, unspecified; E78.5 Hyperlipidemia, unspecified; E66.9 Obesity, unspecified; I10 Essential (primary) hypertension; I25.10 Atherosclerotic heart disease of native coronary artery without angina pectoris; Z86.718 Personal history of other venous thrombosis and embolism; Z68.33 Body mass index [BMI] 33.0-33.9, adult ==

== ENCOUNTER → 2023-09-17 | Outpatient (CLI) | payer OTHER | END | disposition home or self-care (01) | LOC: WOUNDCARE 01:05 | PROVIDERS: ATTEND Nurse Practitioner Family | DX: E11.621 Type 2 diabetes mellitus with foot ulcer (principal); L97.522 Non-pressure chronic ulcer of other part of left foot with fat layer exposed; L03.90 Cellulitis, unspecified; I10 Essential (primary) hypertension; E11.69 Type 2 diabetes mellitus with other specified complication; M86.68 Other chronic osteomyelitis, other site; E55.9 Vitamin D deficiency, unspecified; L84 Corns and callosities; E78.5 Hyperlipidemia, unspecified; E66.9 Obesity, unspecified; Z68.33 Body mass index [BMI] 33.0-33.9, adult; Z86.718 Personal history of other venous thrombosis and embolism; Z79.4 Long term (current) use of insulin; Z79.82 Long term (current) use of aspirin ==

== ENCOUNTER → 2023-09-20 | Outpatient (CLI) | payer OTHER ==
[2023-09-20 16:13] LABS: BASO # 0.1 10*3/uL (0.0-0.1); BASO % 0.8 % (0.0-1.0); EOS # 0.1 10*3/uL (0.0-0.4); EOS % 1.5 % (1.0-4.0); HEMATOCRIT 43.8 % (42.0-52.0); LYMPH # 1.9 10*3/uL (1.3-4.4); LYMPH % 22.4 % (27.0-41.0); MEAN CELL VOLUME 87.3 fl (80.0-94.0); MEAN CORPUSCULAR HGB 27.3 pg (27.0-31.0); MEAN CORPUSCULAR HGB CONC 31.3 g/dl (33.0-37.0); MEAN PLATELET VOLUME 11.7 fl (9.6-12.3); MONO # 0.7 10*3/uL (0.1-1.0); MONO % 7.9 % (3.0-9.0); NEUT # 5.7 10*3/uL (2.3-7.9); NEUT % 67.3 % (47.0-73.0); PLATELET COUNT AUTOMATED 242 10*3/uL (130-400); RED BLOOD COUNT 5.02 10*6/uL (4.50-5.90); RED CELL DISTRI WIDTH 13.2 % (0-14.5); WHITE BLOOD COUNT 8.4 10*3/uL (4.8-10.8)
[2023-09-20 16:37] LABS: URINE CREATININE RANDOM 54.38 mg/dL
[2023-09-20 16:45] LABS: VITAMIN D, 25-HYDROXY 31.7 ng/mL (30-100)
[2023-09-20 18:05] LABS: POTASSIUM 4.1 mmol/L (3.4-5.1); TOTAL PROTEIN 7.1 gm/dL (6.0-8.0)
== END | disposition home or self-care (01) ==
LOC: RESCLI 02:52
PROVIDERS: Student in an Organized Health Care Education/Training Program; ATTEND Student in an Organized Health Care Education/Training Program
DX: Z00.00 Encounter for general adult medical examination without abnormal findings (principal); E11.9 Type 2 diabetes mellitus without complications; I10 Essential (primary) hypertension; E55.9 Vitamin D deficiency, unspecified; E66.9 Obesity, unspecified; E78.5 Hyperlipidemia, unspecified; Z79.82 Long term (current) use of aspirin; Z98.890 Other specified postprocedural states; Z79.899 Other long term (current) drug therapy

== ENCOUNTER → 2023-09-24 | Outpatient (CLI) | payer OTHER | END | disposition home or self-care (01) | LOC: WOUNDCARE 01:36 | PROVIDERS: ATTEND Nurse Practitioner Family | DX: E11.621 Type 2 diabetes mellitus with foot ulcer (principal); L97.522 Non-pressure chronic ulcer of other part of left foot with fat layer exposed; L02.11 Cutaneous abscess of neck; L02.416 Cutaneous abscess of left lower limb; L02.211 Cutaneous abscess of abdominal wall; L03.90 Cellulitis, unspecified; E11.69 Type 2 diabetes mellitus with other specified complication; M86.9 Osteomyelitis, unspecified; I10 Essential (primary) hypertension; E55.9 Vitamin D deficiency, unspecified; E78.5 Hyperlipidemia, unspecified; E66.9 Obesity, unspecified; Z86.718 Personal history of other venous thrombosis and embolism; Z68.33 Body mass index [BMI] 33.0-33.9, adult ==

== ENCOUNTER → 2023-10-01 | Outpatient (CLI) | payer OTHER | END | disposition home or self-care (01) | LOC: WOUNDCARE 00:52 | PROVIDERS: ATTEND Nurse Practitioner Family | DX: E11.621 Type 2 diabetes mellitus with foot ulcer (principal); L97.522 Non-pressure chronic ulcer of other part of left foot with fat layer exposed; L02.11 Cutaneous abscess of neck; L02.416 Cutaneous abscess of left lower limb; L02.211 Cutaneous abscess of abdominal wall; L84 Corns and callosities; L03.90 Cellulitis, unspecified; I10 Essential (primary) hypertension; E55.9 Vitamin D deficiency, unspecified; E11.69 Type 2 diabetes mellitus with other specified complication; M86.68 Other chronic osteomyelitis, other site; E78.5 Hyperlipidemia, unspecified; E66.9 Obesity, unspecified; Z68.33 Body mass index [BMI] 33.0-33.9, adult; Z86.718 Personal history of other venous thrombosis and embolism; Z79.4 Long term (current) use of insulin; Z79.82 Long term (current) use of aspirin ==

== ENCOUNTER → 2023-10-07 | Outpatient (CLI) | payer OTHER | END | disposition home or self-care (01) | LOC: WOUNDCARE 03:15 | PROVIDERS: ATTEND Nurse Practitioner Family | DX: E11.621 Type 2 diabetes mellitus with foot ulcer (principal); L97.512 Non-pressure chronic ulcer of other part of right foot with fat layer exposed; L97.522 Non-pressure chronic ulcer of other part of left foot with fat layer exposed; L03.90 Cellulitis, unspecified; I10 Essential (primary) hypertension; E55.9 Vitamin D deficiency, unspecified; L84 Corns and callosities; L02.11 Cutaneous abscess of neck; L02.211 Cutaneous abscess of abdominal wall; E11.69 Type 2 diabetes mellitus with other specified complication; M86.68 Other chronic osteomyelitis, other site; E78.5 Hyperlipidemia, unspecified; E66.9 Obesity, unspecified; Z86.718 Personal history of other venous thrombosis and embolism; Z68.33 Body mass index [BMI] 33.0-33.9, adult; Z79.4 Long term (current) use of insulin; Z79.82 Long term (current) use of aspirin ==

== ENCOUNTER → 2023-10-14 | Outpatient (CLI) | payer OTHER | END | disposition home or self-care (01) | LOC: WOUNDCARE 01:42 | PROVIDERS: ATTEND Nurse Practitioner Family | DX: E11.621 Type 2 diabetes mellitus with foot ulcer (principal); L97.522 Non-pressure chronic ulcer of other part of left foot with fat layer exposed; L02.11 Cutaneous abscess of neck; L02.211 Cutaneous abscess of abdominal wall; L03.116 Cellulitis of left lower limb; L84 Corns and callosities; E11.69 Type 2 diabetes mellitus with other specified complication; M86.9 Osteomyelitis, unspecified; I10 Essential (primary) hypertension; E55.9 Vitamin D deficiency, unspecified; E78.5 Hyperlipidemia, unspecified; E66.9 Obesity, unspecified; I25.10 Atherosclerotic heart disease of native coronary artery without angina pectoris; Z86.718 Personal history of other venous thrombosis and embolism; Z68.33 Body mass index [BMI] 33.0-33.9, adult ==

== ENCOUNTER → 2023-10-21 | Outpatient (CLI) | payer OTHER | END | disposition home or self-care (01) | LOC: WOUNDCARE 01:37 | PROVIDERS: ATTEND Nurse Practitioner Family | DX: E11.621 Type 2 diabetes mellitus with foot ulcer (principal); L97.522 Non-pressure chronic ulcer of other part of left foot with fat layer exposed; L02.11 Cutaneous abscess of neck; L02.211 Cutaneous abscess of abdominal wall; L84 Corns and callosities; L03.90 Cellulitis, unspecified; E55.9 Vitamin D deficiency, unspecified; I10 Essential (primary) hypertension; E11.69 Type 2 diabetes mellitus with other specified complication; M86.9 Osteomyelitis, unspecified; E78.5 Hyperlipidemia, unspecified; E66.9 Obesity, unspecified; Z68.33 Body mass index [BMI] 33.0-33.9, adult; Z86.718 Personal history of other venous thrombosis and embolism; Z79.4 Long term (current) use of insulin; Z79.82 Long term (current) use of aspirin; Z79.899 Other long term (current) drug therapy ==

== ENCOUNTER → 2023-10-28 | Outpatient (CLI) | payer OTHER | END | disposition home or self-care (01) | LOC: WOUNDCARE 00:40 → LAB 03:46 → WOUNDCARE 10:54 → LAB 10:55 | PROVIDERS: ATTEND Nurse Practitioner Family | DX: E11.621 Type 2 diabetes mellitus with foot ulcer (principal); L97.522 Non-pressure chronic ulcer of other part of left foot with fat layer exposed; L84 Corns and callosities; L03.90 Cellulitis, unspecified; L02.91 Cutaneous abscess, unspecified; E55.9 Vitamin D deficiency, unspecified; I10 Essential (primary) hypertension; I25.10 Atherosclerotic heart disease of native coronary artery without angina pectoris; E11.69 Type 2 diabetes mellitus with other specified complication; M86.9 Osteomyelitis, unspecified; E78.5 Hyperlipidemia, unspecified; E66.9 Obesity, unspecified; Z68.33 Body mass index [BMI] 33.0-33.9, adult; Z86.718 Personal history of other venous thrombosis and embolism; Z79.4 Long term (current) use of insulin; Z79.82 Long term (current) use of aspirin; Z79.899 Other long term (current) drug therapy ==

== ENCOUNTER → 2023-11-04 | Outpatient (CLI) | payer OTHER | END | disposition home or self-care (01) | LOC: WOUNDCARE 01:57 | PROVIDERS: ATTEND Nurse Practitioner Family | DX: E11.621 Type 2 diabetes mellitus with foot ulcer (principal); L97.522 Non-pressure chronic ulcer of other part of left foot with fat layer exposed; L84 Corns and callosities; L03.90 Cellulitis, unspecified; L02.91 Cutaneous abscess, unspecified; E55.9 Vitamin D deficiency, unspecified; I10 Essential (primary) hypertension; I25.10 Atherosclerotic heart disease of native coronary artery without angina pectoris; E11.69 Type 2 diabetes mellitus with other specified complication; M86.9 Osteomyelitis, unspecified; E78.5 Hyperlipidemia, unspecified; E66.9 Obesity, unspecified; Z68.33 Body mass index [BMI] 33.0-33.9, adult; Z86.718 Personal history of other venous thrombosis and embolism; Z79.4 Long term (current) use of insulin; Z79.82 Long term (current) use of aspirin; Z79.899 Other long term (current) drug therapy ==

== ENCOUNTER → 2023-11-09 | Outpatient (CLI) | payer OTHER | END | disposition home or self-care (01) | LOC: WOUNDCARE 01:19 | PROVIDERS: ATTEND Nurse Practitioner Family | DX: E11.621 Type 2 diabetes mellitus with foot ulcer (principal); L97.522 Non-pressure chronic ulcer of other part of left foot with fat layer exposed; L84 Corns and callosities; L03.90 Cellulitis, unspecified; L02.91 Cutaneous abscess, unspecified; E55.9 Vitamin D deficiency, unspecified; I10 Essential (primary) hypertension; I25.10 Atherosclerotic heart disease of native coronary artery without angina pectoris; E11.69 Type 2 diabetes mellitus with other specified complication; M86.9 Osteomyelitis, unspecified; E78.5 Hyperlipidemia, unspecified; E66.9 Obesity, unspecified; Z79.4 Long term (current) use of insulin; Z79.82 Long term (current) use of aspirin; Z79.899 Other long term (current) drug therapy; Z68.33 Body mass index [BMI] 33.0-33.9, adult; Z86.718 Personal history of other venous thrombosis and embolism ==

== ENCOUNTER → 2023-11-17 | Outpatient (CLI) | payer OTHER | END | disposition home or self-care (01) | LOC: WOUNDCARE 03:49 | PROVIDERS: ATTEND Nurse Practitioner Family | DX: E11.621 Type 2 diabetes mellitus with foot ulcer (principal); L97.522 Non-pressure chronic ulcer of other part of left foot with fat layer exposed; L84 Corns and callosities; L03.90 Cellulitis, unspecified; L02.91 Cutaneous abscess, unspecified; I10 Essential (primary) hypertension; I25.10 Atherosclerotic heart disease of native coronary artery without angina pectoris; E55.9 Vitamin D deficiency, unspecified; E11.69 Type 2 diabetes mellitus with other specified complication; M86.9 Osteomyelitis, unspecified; E66.9 Obesity, unspecified; E78.5 Hyperlipidemia, unspecified; Z68.33 Body mass index [BMI] 33.0-33.9, adult; Z86.718 Personal history of other venous thrombosis and embolism; Z98.890 Other specified postprocedural states; Z79.4 Long term (current) use of insulin; Z79.82 Long term (current) use of aspirin; Z79.899 Other long term (current) drug therapy ==

== ENCOUNTER → 2023-11-23 | Outpatient (CLI) | payer OTHER | END | disposition home or self-care (01) | LOC: WOUNDCARE 01:44 | PROVIDERS: ATTEND Nurse Practitioner Family | DX: E11.621 Type 2 diabetes mellitus with foot ulcer (principal); L97.522 Non-pressure chronic ulcer of other part of left foot with fat layer exposed; E11.69 Type 2 diabetes mellitus with other specified complication; M86.9 Osteomyelitis, unspecified; I10 Essential (primary) hypertension; I25.10 Atherosclerotic heart disease of native coronary artery without angina pectoris; E55.9 Vitamin D deficiency, unspecified; E78.5 Hyperlipidemia, unspecified; L03.90 Cellulitis, unspecified; L02.91 Cutaneous abscess, unspecified; L84 Corns and callosities; E66.9 Obesity, unspecified; Z68.33 Body mass index [BMI] 33.0-33.9, adult; Z86.718 Personal history of other venous thrombosis and embolism; Z79.4 Long term (current) use of insulin; Z79.82 Long term (current) use of aspirin; Z79.899 Other long term (current) drug therapy ==

== ENCOUNTER 2023-11-30 16:10 | Inpatient (IN) | payer OTHER ==
[~2023-11-30] VITALS: Ht 182.9 cm; Wt 111.3 kg
[2023-11-30 16:29] VITALS: BP 149/80
[2023-11-30 17:01] LABS: BASO # 0.1 10*3/uL (0.0-0.1); BASO % 0.5 % (0.0-1.0); EOS # 0.1 10*3/uL (0.0-0.4); EOS % 0.9 % (1.0-4.0); HEMATOCRIT 42.9 % (42.0-52.0); LYMPH # 1.6 10*3/uL (1.3-4.4); LYMPH % 15.4 % (27.0-41.0); MEAN CELL VOLUME 88.5 fl (80.0-94.0); MEAN CORPUSCULAR HGB 27.2 pg (27.0-31.0); MEAN CORPUSCULAR HGB CONC 30.8 g/dl (33.0-37.0); MEAN PLATELET VOLUME 11.2 fl (9.6-12.3); MONO # 0.9 10*3/uL (0.1-1.0); MONO % 8.8 % (3.0-9.0); NEUT # 7.5 10*3/uL (2.3-7.9); NEUT % 74.1 % (47.0-73.0); PLATELET COUNT AUTOMATED 269 10*3/uL (130-400); RED BLOOD COUNT 4.85 10*6/uL (4.50-5.90); RED CELL DISTRI WIDTH 13.6 % (0-14.5); WHITE BLOOD COUNT 10.1 10*3/uL (4.8-10.8)
[2023-11-30] MEDS ORDERED: JARDIANCE10 MG PO (17:09)
[2023-11-30] MEDS ORDERED: JANUVIA50 MG PO (17:11)
[2023-11-30 17:12] LABS: ACT PARTIAL THROMBO TIME 30.1 SECONDS (20.0-32.1)
[2023-11-30] MEDS ORDERED: HUMALOG100 UNIT/1 SC (17:12)
[2023-11-30 17:17] LABS: POTASSIUM 4.2 mmol/L (3.4-5.1); TOTAL PROTEIN 7.1 gm/dL (6.0-8.0)
[2023-11-30] MEDS ORDERED: Cefepime Hydrochloride 2 GM in SODIUM CHLORIDE 0.9% 50 ML IV ONE (17:45)
[2023-11-30] MEDS ORDERED: Vancomycin Hydrochloride 250 ML IV ONE (17:45)
[2023-11-30 19:57] VITALS: BP 155/81
[2023-11-30] MEDS ORDERED: BISACODYL 10 MG SUPP R PRN (20:15)
[2023-11-30] MEDS ORDERED: DEXTROSE 10 % IN WATER 250 ML IV PRN (20:15)
[2023-11-30] MEDS ORDERED: BISACODYL 5 MG TAB PO PRN (20:15)
[2023-11-30] MEDS ORDERED: ACETAMINOPHEN 325 MG TAB PO PRN (20:15)
[2023-11-30] MEDS ORDERED: Acetaminophen/Hydrocodone 5 MG/325 MG TABLET PO PRN (20:15)
[2023-11-30] MEDS ORDERED: TEMAZEPAM 15 MG CAP PO PRN (20:15)
[2023-11-30] MEDS ORDERED: Magnesium Hydroxide 30 ML UDC PO PRN (20:15)
[2023-11-30] MEDS ORDERED: ACETAMINOPHEN 650 MG SUPP R PRN (20:15)
[2023-11-30] MEDS ORDERED: SODIUM CHLORIDE 0.9% 1,000 ML IV ONE (20:25)
[2023-11-30] MEDS ORDERED: INSULIN LISPRO 1 UNIT/0.01 ML SQ SCH (22:00)
[2023-11-30] MEDS ORDERED: METRONIDAZOLE 100 ML IV SCH (22:00)
[2023-11-30 23:10] VITALS: BP 166/72
[2023-11-30 23:21] VITALS: BP 145/82
[2023-12-01] VITALS: BP 166/72
[2023-12-01] MEDS ORDERED: VANCOMYCIN/WATER FOR INJ (PEG) 400 ML IV SCH (06:00)
[2023-12-01 06:27] LABS: POTASSIUM 4.1 mmol/L (3.4-5.1)
[2023-12-01 06:54] LABS: BASO # 0.1 10*3/uL (0.0-0.1); BASO % 0.6 % (0.0-1.0); EOS # 0.1 10*3/uL (0.0-0.4); EOS % 1.1 % (1.0-4.0); HEMATOCRIT 38.2 % (42.0-52.0); LYMPH # 1.3 10*3/uL (1.3-4.4); LYMPH % 15.7 % (27.0-41.0); MEAN CORPUSCULAR HGB 27.6 pg (27.0-31.0); MEAN CORPUSCULAR HGB CONC 31.4 g/dl (33.0-37.0); MEAN PLATELET VOLUME 11.8 fl (9.6-12.3); MONO # 0.9 10*3/uL (0.1-1.0); MONO % 11.2 % (3.0-9.0); NEUT # 5.7 10*3/uL (2.3-7.9); NEUT % 71.2 % (47.0-73.0); PLATELET COUNT AUTOMATED 224 10*3/uL (130-400); RED BLOOD COUNT 4.34 10*6/uL (4.50-5.90); RED CELL DISTRI WIDTH 13.6 % (0-14.5); WHITE BLOOD COUNT 8.1 10*3/uL (4.8-10.8)
[2023-12-01] MEDS ORDERED: LISINOPRIL20 MG PO (07:35)
[2023-12-01 08:00] VITALS: BP 139/76
[2023-12-01] MEDS ORDERED: Enoxaparin Sodium 40 MG/0.4 ML SYR SC SCH (10:00)
[2023-12-01 12:00] VITALS: BP 152/53
[2023-12-01 16:00] VITALS: BP 164/86
[2023-12-01] MEDS ORDERED: ATORVASTATIN CALCIUM 40 MG TABLET PO SCH (18:00)
[2023-12-01 20:00] VITALS: BP 160/78; BP 168/89
[2023-12-01] MEDS ORDERED: amLODIPine besylate 5 MG TAB PO ONE (20:15)
[2023-12-01] MEDS ORDERED: Cefepime Hydrochloride 2 GM in SODIUM CHLORIDE 0.9% 50 ML IV SCH (21:00)
[2023-12-02] VITALS (8 sets, daily range): BP systolic 126–166; BP diastolic 61–91
[2023-12-02 07:04] LABS: BASO # 0.1 10*3/uL (0.0-0.1); BASO % 0.8 % (0.0-1.0); EOS # 0.1 10*3/uL (0.0-0.4); EOS % 1.8 % (1.0-4.0); HEMATOCRIT 39.4 % (42.0-52.0); LYMPH # 1.3 10*3/uL (1.3-4.4); LYMPH % 21.2 % (27.0-41.0); MEAN CELL VOLUME 89.3 fl (80.0-94.0); MEAN CORPUSCULAR HGB 27.7 pg (27.0-31.0); MONO # 0.7 10*3/uL (0.1-1.0); MONO % 11.8 % (3.0-9.0); NEUT % 64.1 % (47.0-73.0); PLATELET COUNT AUTOMATED 239 10*3/uL (130-400); RED BLOOD COUNT 4.41 10*6/uL (4.50-5.90); RED CELL DISTRI WIDTH 13.3 % (0-14.5); WHITE BLOOD COUNT 6.3 10*3/uL (4.8-10.8)
[2023-12-02 07:35] LABS: POTASSIUM 4.2 mmol/L (3.4-5.1)
[2023-12-02] MEDS ORDERED: ASPIRIN, CHEWABLE 81 MG TAB PO SCH (10:00)
[2023-12-02] MEDS ORDERED: amLODIPine besylate 5 MG TAB PO SCH (10:00)
[2023-12-02] MEDS ORDERED: SODIUM CHLORIDE 0.9% 1,000 ML IV ONE (14:56)
[2023-12-02] MEDS ORDERED: Lidocaine Hydrochloride 2% 10 ML AMP IM ONE (18:26)
[2023-12-02] MEDS ORDERED: PROPOFOL 200 MG/20 ML VIAL IV ONE (18:26)
[2023-12-02] MEDS ORDERED: Midazolam Hydrochloride 2 MG/2 ML VIAL IV ONE (18:26)
[2023-12-03] VITALS: BP 150/78
[2023-12-03 05:44] LABS: POTASSIUM 4.1 mmol/L (3.4-5.1)
[2023-12-03 06:27] LABS: BASO # 0.1 10*3/uL (0.0-0.1); BASO % 1.1 % (0.0-1.0); EOS # 0.2 10*3/uL (0.0-0.4); HEMATOCRIT 38.2 % (42.0-52.0); LYMPH # 1.2 10*3/uL (1.3-4.4); LYMPH % 21.6 % (27.0-41.0); MEAN CELL VOLUME 86.8 fl (80.0-94.0); MEAN CORPUSCULAR HGB 27.7 pg (27.0-31.0); MEAN CORPUSCULAR HGB CONC 31.9 g/dl (33.0-37.0); MEAN PLATELET VOLUME 11.8 fl (9.6-12.3); MONO # 0.6 10*3/uL (0.1-1.0); MONO % 10.4 % (3.0-9.0); NEUT # 3.6 10*3/uL (2.3-7.9); NEUT % 63.7 % (47.0-73.0); PLATELET COUNT AUTOMATED 250 10*3/uL (130-400); RED CELL DISTRI WIDTH 13.2 % (0-14.5); WHITE BLOOD COUNT 5.7 10*3/uL (4.8-10.8)
[2023-12-03 08:00] VITALS: BP 155/77
[2023-12-03] MEDS ORDERED: VANCOMYCIN/WATER FOR INJ (PEG) 300 ML IV SCH (10:00)
[2023-12-03 11:08] LABS: ACID FAST SPEC PROCESSING Tissue Grinding (.)
[2023-12-03 12:00] VITALS: BP 147/89; BP 163/84
[2023-12-03 16:00] VITALS: BP 158/80
[2023-12-03 20:00] VITALS: BP 150/77
[2023-12-04] VITALS: BP 150/76; BP 150/77
[2023-12-04 06:03] LABS: POTASSIUM 4.1 mmol/L (3.4-5.1)
[2023-12-04 06:09] LABS: BASO # 0.1 10*3/uL (0.0-0.1); BASO % 0.9 % (0.0-1.0); EOS # 0.2 10*3/uL (0.0-0.4); EOS % 3.4 % (1.0-4.0); HEMATOCRIT 41.3 % (42.0-52.0); LYMPH # 1.4 10*3/uL (1.3-4.4); LYMPH % 26.2 % (27.0-41.0); MEAN CELL VOLUME 87.7 fl (80.0-94.0); MEAN CORPUSCULAR HGB 27.2 pg (27.0-31.0); MEAN PLATELET VOLUME 11.6 fl (9.6-12.3); MONO # 0.6 10*3/uL (0.1-1.0); MONO % 11.9 % (3.0-9.0); NEUT # 3.1 10*3/uL (2.3-7.9); NEUT % 57.4 % (47.0-73.0); PLATELET COUNT AUTOMATED 272 10*3/uL (130-400); RED BLOOD COUNT 4.71 10*6/uL (4.50-5.90); RED CELL DISTRI WIDTH 12.9 % (0-14.5); WHITE BLOOD COUNT 5.3 10*3/uL (4.8-10.8)
[2023-12-04 08:00] VITALS: BP 156/89
[2023-12-04 11:58] VITALS: BP 162/86
[2023-12-04 16:00] VITALS: BP 163/86
[2023-12-04] MEDS ORDERED: hydrALAZINE hydrochloride 20 MG/ML VIAL IV ONE ×2 (17:35→17:45)
[2023-12-04 17:38] VITALS: BP 162/78
[2023-12-04 20:19] VITALS: BP 157/77
[2023-12-05] VITALS: BP 121/50
[2023-12-05 06:18] LABS: BASO # 0.1 10*3/uL (0.0-0.1); EOS # 0.2 10*3/uL (0.0-0.4); EOS % 3.3 % (1.0-4.0); HEMATOCRIT 40.6 % (42.0-52.0); LYMPH # 1.3 10*3/uL (1.3-4.4); LYMPH % 24.5 % (27.0-41.0); MEAN CORPUSCULAR HGB 26.9 pg (27.0-31.0); MEAN CORPUSCULAR HGB CONC 31.8 g/dl (33.0-37.0); MEAN PLATELET VOLUME 11.4 fl (9.6-12.3); MONO # 0.5 10*3/uL (0.1-1.0); MONO % 9.7 % (3.0-9.0); NEUT # 3.2 10*3/uL (2.3-7.9); NEUT % 61.3 % (47.0-73.0); PLATELET COUNT AUTOMATED 263 10*3/uL (130-400); RED CELL DISTRI WIDTH 12.9 % (0-14.5); WHITE BLOOD COUNT 5.2 10*3/uL (4.8-10.8)
[2023-12-05 06:48] LABS: MEAN CELL VOLUME 84.6 fl (80.0-94.0)
[2023-12-05 07:16] LABS: POTASSIUM 3.9 mmol/L (3.4-5.1)
[2023-12-05 08:00] VITALS: BP 140/80
[2023-12-05 11:55] VITALS: BP 153/92
[2023-12-05 16:00] VITALS: BP 156/81
[2023-12-05 20:00] VITALS: BP 152/86
[2023-12-05] MEDS ORDERED: DALVANCE500 MG IV (21:14)
[2023-12-06] VITALS: BP 142/81
[2023-12-06 05:28] LABS: POTASSIUM 3.8 mmol/L (3.4-5.1)
[2023-12-06 06:18] LABS: BASO # 0.1 10*3/uL (0.0-0.1); EOS # 0.2 10*3/uL (0.0-0.4); EOS % 2.5 % (1.0-4.0); HEMATOCRIT 39.8 % (42.0-52.0); LYMPH # 1.6 10*3/uL (1.3-4.4); MEAN CELL VOLUME 86.3 fl (80.0-94.0); MEAN CORPUSCULAR HGB 27.1 pg (27.0-31.0); MEAN CORPUSCULAR HGB CONC 31.4 g/dl (33.0-37.0); MEAN PLATELET VOLUME 11.6 fl (9.6-12.3); MONO # 0.6 10*3/uL (0.1-1.0); MONO % 9.1 % (3.0-9.0); NEUT # 3.6 10*3/uL (2.3-7.9); NEUT % 60.2 % (47.0-73.0); PLATELET COUNT AUTOMATED 265 10*3/uL (130-400); RED BLOOD COUNT 4.61 10*6/uL (4.50-5.90); RED CELL DISTRI WIDTH 12.9 % (0-14.5)
[2023-12-06 08:00] VITALS: BP 159/87
[2023-12-06] MEDS ORDERED: DALVANCE500 MG IV (11:54)
== END 2023-12-06 13:25 | disposition home or self-care (01) | DRG 629 ==
LOC: ED 16:10 → 4E 18:33 → EDHOLD 18:33 → 4E 22:54
PROVIDERS: Family Medicine; Internal Medicine; Podiatrist; Student in an Organized Health Care Education/Training Program; ADMIT Internal Medicine; ATTEND Internal Medicine
PROC: 0QBM0ZX Excision of Left Tarsal, Open Approach, Diagnostic (ICD-10-PCS; principal; 2023-12-02)
PROC: 0HRLXK3 Replacement of Left Lower Leg Skin with Nonautologous Tissue Substitute, Full Thickness, External Approach (ICD-10-PCS; 2023-12-02)
DX: E11.69 Type 2 diabetes mellitus with other specified complication (principal); E44.1 Mild protein-calorie malnutrition; M86.172 Other acute osteomyelitis, left ankle and foot; R78.81 Bacteremia; L03.032 Cellulitis of left toe; N17.0 Acute kidney failure with tubular necrosis; E11.22 Type 2 diabetes mellitus with diabetic chronic kidney disease; E78.5 Hyperlipidemia, unspecified; D50.9 Iron deficiency anemia, unspecified; S91.309A Unspecified open wound, unspecified foot, initial encounter; E11.65 Type 2 diabetes mellitus with hyperglycemia; E55.9 Vitamin D deficiency, unspecified; I87.2 Venous insufficiency (chronic) (peripheral); I12.9 Hypertensive chronic kidney disease with stage 1 through stage 4 chronic kidney disease, or unspecified chronic kidney disease; E11.42 Type 2 diabetes mellitus with diabetic polyneuropathy; N18.32 Chronic kidney disease, stage 3b; E11.621 Type 2 diabetes mellitus with foot ulcer; E11.51 Type 2 diabetes mellitus with diabetic peripheral angiopathy without gangrene; Z89.422 Acquired absence of other left toe(s); Z83.3 Family history of diabetes mellitus; Z80.52 Family history of malignant neoplasm of bladder; Z86.16 Personal history of COVID-19; Z86.718 Personal history of other venous thrombosis and embolism; Z68.33 Body mass index [BMI] 33.0-33.9, adult

== ENCOUNTER → 2024-01-24 | Outpatient (CLI) | payer OTHER ==
[~2024-01-24] MED LIST changes: +DALVANCE500 MG IV; +HUMALOG100 UNIT/1 SC; +JANUVIA50 MG PO; +JARDIANCE10 MG PO
== END | disposition home or self-care (01) ==
LOC: RESCLI 00:52
PROVIDERS: ATTEND Internal Medicine
DX: I12.9 Hypertensive chronic kidney disease with stage 1 through stage 4 chronic kidney disease, or unspecified chronic kidney disease (principal); E11.22 Type 2 diabetes mellitus with diabetic chronic kidney disease; N18.32 Chronic kidney disease, stage 3b; M86.9 Osteomyelitis, unspecified; E78.5 Hyperlipidemia, unspecified; I73.9 Peripheral vascular disease, unspecified; E55.9 Vitamin D deficiency, unspecified; Z13.9 Encounter for screening, unspecified; Z79.899 Other long term (current) drug therapy; Z79.82 Long term (current) use of aspirin; Z98.890 Other specified postprocedural states; Z83.3 Family history of diabetes mellitus

== ENCOUNTER → 2024-01-25 | Outpatient (CLI) | payer OTHER ==
[2024-01-25 10:24] LABS: BASO # 0.1 10*3/uL (0.0-0.1); BASO % 1.1 % (0.0-1.0); EOS # 0.2 10*3/uL (0.0-0.4); EOS % 2.3 % (1.0-4.0); HEMATOCRIT 43.2 % (42.0-52.0); LYMPH # 1.6 10*3/uL (1.3-4.4); LYMPH % 24.3 % (27.0-41.0); MEAN CELL VOLUME 87.4 fl (80.0-94.0); MEAN CORPUSCULAR HGB 27.7 pg (27.0-31.0); MEAN CORPUSCULAR HGB CONC 31.7 g/dl (33.0-37.0); MEAN PLATELET VOLUME 11.3 fl (9.6-12.3); MONO # 0.5 10*3/uL (0.1-1.0); MONO % 8.3 % (3.0-9.0); NEUT # 4.1 10*3/uL (2.3-7.9); NEUT % 63.8 % (47.0-73.0); PLATELET COUNT AUTOMATED 219 10*3/uL (130-400); RED BLOOD COUNT 4.94 10*6/uL (4.50-5.90); WHITE BLOOD COUNT 6.5 10*3/uL (4.8-10.8)
[2024-01-25 10:47] LABS: URINE CREATININE RANDOM 52.49 mg/dL
== END ==
LOC: LAB 10:04
PROVIDERS: ATTEND Internal Medicine
DX: Z13.9 Encounter for screening, unspecified (principal)

== ENCOUNTER → 2024-04-10 | Outpatient (CLI) | payer OTHER | END | disposition home or self-care (01) | LOC: RAD 12:15 | PROVIDERS: ATTEND Family Medicine | DX: S92.351A Displaced fracture of fifth metatarsal bone, right foot, initial encounter for closed fracture (principal); X58.XXXA Exposure to other specified factors, initial encounter; Y93.89 Activity, other specified; Y92.89 Other specified places as the place of occurrence of the external cause; Y99.8 Other external cause status ==

== ENCOUNTER → 2024-06-13 | Outpatient (CLI) | payer OTHER | END | disposition home or self-care (01) | LOC: RAD 07:15 | PROVIDERS: ATTEND Family Medicine | DX: M19.071 Primary osteoarthritis, right ankle and foot (principal); M25.774 Osteophyte, right foot ==

== ENCOUNTER 2025-03-10 10:50 | Emergency (ER) | payer OTHER ==
[~2025-03-10] VITALS: Ht 182.8 cm; Wt 113.4 kg
[2025-03-10] MEDS ORDERED: ZITHROMAX250 MG PO (13:03)
[2025-03-10] MEDS ORDERED: PREDNISONE20 M1 PO (13:03)
[2025-03-10] MEDS ORDERED: AZITHROMYCIN 250 MG TAB PO ONE (13:05)
[2025-03-10] MEDS ORDERED: predniSONE 20 MG TAB PO ONE (13:05)
== END 2025-03-10 13:10 | disposition home or self-care (01) ==
LOC: ED 10:50
DX: J32.9 Chronic sinusitis, unspecified (principal); E11.9 Type 2 diabetes mellitus without complications; Z79.82 Long term (current) use of aspirin; Z79.899 Other long term (current) drug therapy; Z79.4 Long term (current) use of insulin; Z79.84 Long term (current) use of oral hypoglycemic drugs; Z89.422 Acquired absence of other left toe(s); Z98.890 Other specified postprocedural states

== ENCOUNTER → 2025-05-02 | Outpatient (CLI) | payer OTHER ==
[~2025-05-02] MED LIST changes: +PREDNISONE20 M1 PO; +ZITHROMAX250 MG PO
[2025-05-02 15:22] LABS: BASO # 0.0 10*3/uL (0.0-0.1); BASO % 0.6 % (0.0-1.0); EOS # 0.2 10*3/uL (0.0-0.4); EOS % 2.2 % (1.0-4.0); MEAN CELL VOLUME 88.1 fl (80.0-94.0); MEAN CORPUSCULAR HGB 28.0 pg (27.0-31.0); MEAN PLATELET VOLUME 10.8 fl (9.6-12.3); MONO # 0.7 10*3/uL (0.1-1.0); MONO % 9.5 % (3.0-9.0); NEUT # 4.6 10*3/uL (2.3-7.9); NEUT % 67.9 % (47.0-73.0); NUCLEATED RED BLOOD CELL 0.0 % (0.0-0.0); NUCLEATED RED BLOOD CELL 0.0 10*3/uL (0.0-0.0); PLATELET COUNT AUTOMATED 212 10*3/uL (130-400); RED CELL DISTRI WIDTH 13.9 % (0-14.5); RETICULOCYTE % 2.06 % (0.50-2.50)
[2025-05-02 15:30] LABS: BILIRUBIN Negative (Negative); BLOOD 2+ (Negative); CLARITY Cloudy (Clear); COLOR Yellow (Yellow); KETONE Negative (Negative); LEUKO ESTERASE Negative (Negative); NITRITE Negative (Negative); PH 5.5 (4.5-8.0); SPECIFIC GRAVITY 1.015 (1.001-1.030); UROBILINOGEN 0.2 E.U./dl (0.0-1.0)
[2025-05-02 15:42] LABS: BACTERIA 2+
[2025-05-02 16:00] LABS: BUN 85.0 mg/dl (9-23); GAMMA GLUTAMYL TRANSFERASE 11.0 U/L (0-73); LDL CHOLESTEROL 71.0 mg/dL (9-159); SGPT/ALT 23.0 U/L (5-49); T3 UPTAKE 27.4 % (22.4-36.7); THYROXINE (T4) TOTAL 5.8 ug/dl (4.5-10.9)
[2025-05-02 16:02] LABS: VITAMIN D, 25-HYDROXY 26.2 ng/mL (30-100)
[2025-05-03 16:08] LABS: ANTI-DSDNA ANTIBODIES 2 IU/mL (0-9)
== END | disposition home or self-care (01) ==
LOC: LAB 14:49
PROVIDERS: ATTEND Family Medicine
DX: R79.89 Other specified abnormal findings of blood chemistry (principal); E78.5 Hyperlipidemia, unspecified; E55.9 Vitamin D deficiency, unspecified; R53.83 Other fatigue

== ENCOUNTER 2025-05-06 15:54 | Inpatient (IN) | payer OTHER ==
[~2025-05-06] VITALS: Ht 183 cm; Wt 109.1 kg
[2025-05-06 16:22] VITALS: BP 189/97
[2025-05-06] MEDS ORDERED: Pantoprazole Sodium 20 MG TAB PO ONE (16:45)
[2025-05-06 16:59] LABS: BASO # 0.1 10*3/uL (0.0-0.1); BASO % 0.7 % (0.0-1.0); EOS # 0.1 10*3/uL (0.0-0.4); EOS % 1.3 % (1.0-4.0); MEAN CELL VOLUME 86.3 fl (80.0-94.0); MEAN CORPUSCULAR HGB 28.3 pg (27.0-31.0); MEAN PLATELET VOLUME 10.7 fl (9.6-12.3); MONO # 0.5 10*3/uL (0.1-1.0); MONO % 6.0 % (3.0-9.0); NEUT # 6.2 10*3/uL (2.3-7.9); NEUT % 82.8 % (47.0-73.0); NUCLEATED RED BLOOD CELL 0.0 % (0.0-0.0); NUCLEATED RED BLOOD CELL 0.0 10*3/uL (0.0-0.0); PLATELET COUNT AUTOMATED 198 10*3/uL (130-400); RED CELL DISTRI WIDTH 13.9 % (0-14.5)
[2025-05-06 17:20] LABS: BUN 90.0 mg/dl (9-23); SGPT/ALT 18.0 U/L (5-49)
[2025-05-06] MEDS ORDERED: SODIUM CHLORIDE 0.9% 1,000 ML IV ONE ×2 (17:35→21:50)
[2025-05-06] MEDS ORDERED: BISACODYL 10 MG SUPP R PRN (20:05)
[2025-05-06] MEDS ORDERED: Ondansetron Hydrochloride 4 MG/2 ML VIAL IV PRN (20:05)
[2025-05-06] MEDS ORDERED: BISACODYL 5 MG TAB PO PRN (20:05)
[2025-05-06] MEDS ORDERED: ACETAMINOPHEN 325 MG TAB PO PRN (20:05)
[2025-05-06] MEDS ORDERED: Acetaminophen/Hydrocodone 5 MG/325 MG TABLET PO PRN (20:05)
[2025-05-06] MEDS ORDERED: TEMAZEPAM 15 MG CAP PO PRN (20:05)
[2025-05-06] MEDS ORDERED: ACETAMINOPHEN 650 MG SUPP R PRN (20:05)
[2025-05-06] MEDS ORDERED: DEXTROSE 50% 25 GM/50 ML VIAL IV PRN (20:15)
[2025-05-06 21:00] LABS: BILIRUBIN Negative (Negative); BLOOD 1+ (Negative); CLARITY Clear (Clear); COLOR Yellow (Yellow); KETONE Negative (Negative); LEUKO ESTERASE Negative (Negative); NITRITE Negative (Negative); PH 5.5 (4.5-8.0); SPECIFIC GRAVITY 1.015 (1.001-1.030); UROBILINOGEN 0.2 E.U./dl (0.0-1.0)
[2025-05-06 21:13] LABS: BACTERIA 1+
[2025-05-06] MEDS ORDERED: LABETALOL IV ONE (21:20)
[2025-05-06 21:24] VITALS: BP 195/96
[2025-05-06] MEDS ORDERED: Labetalol Hydrochloride 20 MG/4 ML SYR IV ONE (21:30)
[2025-05-06 21:47] VITALS: BP 188/95
[2025-05-06] MEDS ORDERED: INSULIN LISPRO 1 UNIT/0.01 ML SQ SCH (22:00)
[2025-05-06] MEDS ORDERED: HEPARIN SODIUM 5,000 UNIT/ML VIAL SC SCH (22:00)
[2025-05-06 23:42] VITALS: BP 172/82
[2025-05-07 00:15] VITALS: BP 179/84
[2025-05-07 05:55] LABS: BUN 85.0 mg/dl (9-23); SGPT/ALT 14.0 U/L (5-49)
[2025-05-07 05:57] LABS: BASO # 0.1 10*3/uL (0.0-0.1); BASO % 0.6 % (0.0-1.0); EOS # 0.1 10*3/uL (0.0-0.4); EOS % 1.7 % (1.0-4.0); MEAN CELL VOLUME 87.8 fl (80.0-94.0); MEAN CORPUSCULAR HGB 28.0 pg (27.0-31.0); MEAN PLATELET VOLUME 11.2 fl (9.6-12.3); MONO # 0.7 10*3/uL (0.1-1.0); MONO % 8.8 % (3.0-9.0); NEUT # 5.3 10*3/uL (2.3-7.9); NEUT % 67.9 % (47.0-73.0); NUCLEATED RED BLOOD CELL 0.0 % (0.0-0.0); NUCLEATED RED BLOOD CELL 0.0 10*3/uL (0.0-0.0); PLATELET COUNT AUTOMATED 201 10*3/uL (130-400); RED CELL DISTRI WIDTH 13.9 % (0-14.5)
[2025-05-07 08:00] VITALS: BP 185/92
[2025-05-07] MEDS ORDERED: SEVELAMER HYDROCHLORIDE 400 MG PO SCH (08:00)
[2025-05-07] MEDS ORDERED: Sevelamer Hydrochloride 800 MG TAB PO SCH (08:00)
[2025-05-07] MEDS ORDERED: ASPIRIN, CHEWABLE 81 MG TAB PO SCH (10:00)
[2025-05-07 12:00] VITALS: BP 190/89
[2025-05-07 16:00] VITALS: BP 180/90
[2025-05-07] MEDS ORDERED: SODIUM CHLORIDE 0.9% 1,000 ML IV SCH (16:30)
[2025-05-07] MEDS ORDERED: hydrALAZINE hydrochloride 20 MG/ML VIAL IV ONE (18:55)
[2025-05-07 20:00] VITALS: BP 191/94
[2025-05-07] MEDS ORDERED: ATORVASTATIN CALCIUM 40 MG TABLET PO SCH (22:00)
[2025-05-07] MEDS ORDERED: Insulin Glargine, Recombinan 1 UNIT/0.01 ML SC SCH (22:00)
[2025-05-08] VITALS: BP 178/88
[2025-05-08 06:34] LABS: BASO # 0.0 10*3/uL (0.0-0.1); BASO % 0.4 % (0.0-1.0); EOS # 0.1 10*3/uL (0.0-0.4); EOS % 1.3 % (1.0-4.0); MEAN CELL VOLUME 87.8 fl (80.0-94.0); MEAN CORPUSCULAR HGB 27.8 pg (27.0-31.0); MEAN PLATELET VOLUME 10.6 fl (9.6-12.3); MONO # 0.4 10*3/uL (0.1-1.0); MONO % 5.5 % (3.0-9.0); NEUT # 5.3 10*3/uL (2.3-7.9); NEUT % 78.4 % (47.0-73.0); NUCLEATED RED BLOOD CELL 0.0 % (0.0-0.0); NUCLEATED RED BLOOD CELL 0.0 10*3/uL (0.0-0.0); PLATELET COUNT AUTOMATED 197 10*3/uL (130-400); RED CELL DISTRI WIDTH 13.9 % (0-14.5)
[2025-05-08 06:56] LABS: BUN 80.0 mg/dl (9-23)
[2025-05-08 08:00] VITALS: BP 185/94
[2025-05-08 11:15] VITALS: BP 196/90
[2025-05-08] MEDS ORDERED: SEVELAMER HYDROCHLORIDE 400 MG PO SCH (12:00)
[2025-05-08 16:00] VITALS: BP 174/87
[2025-05-08 20:00] VITALS: BP 173/82
[2025-05-08] MEDS ORDERED: Insulin Glargine, Recombinan 1 UNIT/0.01 ML SC SCH (22:00)
[2025-05-09] VITALS (7 sets, daily range): BP systolic 96–185; BP diastolic 49–91
[2025-05-09 06:21] LABS: BASO # 0.0 10*3/uL (0.0-0.1); BASO % 0.6 % (0.0-1.0); EOS # 0.1 10*3/uL (0.0-0.4); EOS % 1.3 % (1.0-4.0); MEAN CELL VOLUME 87.9 fl (80.0-94.0); MEAN CORPUSCULAR HGB 28.0 pg (27.0-31.0); MEAN PLATELET VOLUME 11.0 fl (9.6-12.3); MONO # 0.5 10*3/uL (0.1-1.0); MONO % 7.5 % (3.0-9.0); NEUT # 5.1 10*3/uL (2.3-7.9); NEUT % 74.2 % (47.0-73.0); NUCLEATED RED BLOOD CELL 0.0 % (0.0-0.0); NUCLEATED RED BLOOD CELL 0.0 10*3/uL (0.0-0.0); PLATELET COUNT AUTOMATED 201 10*3/uL (130-400); RED CELL DISTRI WIDTH 13.6 % (0-14.5)
[2025-05-09 06:41] LABS: BUN 77.0 mg/dl (9-23)
[2025-05-09] MEDS ORDERED: SODIUM CHLORIDE 0.9% 1,000 ML BAG IV ONE (08:13)
[2025-05-09] MEDS ORDERED: HEPARIN SODIUM 10,000 UN/10 ML VIAL IV ONE (08:13)
[2025-05-09] MEDS ORDERED: hydrALAZINE hydrochloride 25 MG TAB PO SCH (14:00)
[2025-05-10] VITALS (11 sets, daily range): BP systolic 138–189; BP diastolic 65–95
[2025-05-10 06:01] LABS: BUN 77.0 mg/dl (9-23)
[2025-05-10 06:46] LABS: BASO # 0.0 10*3/uL (0.0-0.1); BASO % 0.5 % (0.0-1.0); EOS # 0.1 10*3/uL (0.0-0.4); EOS % 0.7 % (1.0-4.0); MEAN CELL VOLUME 86.4 fl (80.0-94.0); MEAN CORPUSCULAR HGB 27.5 pg (27.0-31.0); MEAN PLATELET VOLUME 11.3 fl (9.6-12.3); MONO # 0.5 10*3/uL (0.1-1.0); MONO % 6.1 % (3.0-9.0); NEUT # 7.0 10*3/uL (2.3-7.9); NEUT % 81.4 % (47.0-73.0); NUCLEATED RED BLOOD CELL 0.0 % (0.0-0.0); NUCLEATED RED BLOOD CELL 0.0 10*3/uL (0.0-0.0); PLATELET COUNT AUTOMATED 244 10*3/uL (130-400); RED CELL DISTRI WIDTH 13.8 % (0-14.5)
[2025-05-10] MEDS ORDERED: SODIUM CHLORIDE 0.9% 500 ML IV SCH (08:10)
[2025-05-10] MEDS ORDERED: ALBUMIN 25% 50 ML IV PRN (08:25)
[2025-05-10] MEDS ORDERED: SODIUM CHLORIDE 0.9% 1,000 ML IV SCH (08:25)
[2025-05-10] MEDS ORDERED: SODIUM CHLORIDE 23.4% 120 MEQ/30 ML VIAL IV SCH (08:25)
[2025-05-10] MEDS ORDERED: MANNITOL 12.5 GM/50 ML VIAL IV SCH (08:25)
[2025-05-10] MEDS ORDERED: HEPARIN SODIUM 10,000 UN/10 ML VIAL IV SCH (08:25)
[2025-05-10] MEDS ORDERED: HEPARIN SODIUM 5,000 UNIT/ML VIAL IV SCH (08:25)
[2025-05-10] MEDS ORDERED: SODIUM CHLORIDE 0.9% 500 ML IV ONE (08:32)
[2025-05-10] MEDS ORDERED: HEPARIN SODIUM 10,000 UN/10 ML VIAL IV ONE (09:20)
[2025-05-10] MEDS ORDERED: HEPARIN SODIUM 500 UNIT/5 ML SYR IV ONE (09:35)
[2025-05-10] MEDS ORDERED: SODIUM CHLORIDE 0.9% 100 ML IV ONE (09:36)
[2025-05-10] MEDS ORDERED: Lidocaine Hydrochloride 30 ML VIAL ONE (09:36)
[2025-05-10] MEDS ORDERED: IOHEXOL 240 MG/ML 10 ML SOL ONE (09:42)
[2025-05-10] MEDS ORDERED: Ondansetron Hydrochloride 4 MG/2 ML VIAL IV ONE ×2 (10:45→12:56)
[2025-05-10] MEDS ORDERED: Ondansetron Hydrochloride 4 MG/2 ML VIAL ONE (11:08)
[2025-05-10] MEDS ORDERED: ROCURONIUM BROMIDE 50 MG/5 ML SYRINGE IV ONE (12:56)
[2025-05-10] MEDS ORDERED: Phenylephrine Hydrochloride 1 MG/10 ML SYRINGE IV ONE (12:56)
[2025-05-10] MEDS ORDERED: PROPOFOL 200 MG/20 ML VIAL IV ONE (12:56)
[2025-05-10] MEDS ORDERED: SUGAMMADEX SODIUM 200 MG/2 ML VIAL IV ONE (12:56)
[2025-05-10] MEDS ORDERED: Lidocaine Hydrochloride 5 ML VIAL IV ONE (12:56)
[2025-05-10] MEDS ORDERED: SEVOFLURANE 250 ML BOT INH ONE (12:56)
[2025-05-10] MEDS ORDERED: Dexamethasone Sodium Phospha 4 MG/ML VIAL IV ONE (12:56)
[2025-05-11] VITALS: BP 153/80
[2025-05-11 06:16] LABS: BASO # 0.0 10*3/uL (0.0-0.1); BASO % 0.4 % (0.0-1.0); EOS # 0.0 10*3/uL (0.0-0.4); EOS % 0.4 % (1.0-4.0); MEAN CELL VOLUME 86.6 fl (80.0-94.0); MEAN CORPUSCULAR HGB 27.9 pg (27.0-31.0); MEAN PLATELET VOLUME 11.0 fl (9.6-12.3); MONO # 1.1 10*3/uL (0.1-1.0); MONO % 10.2 % (3.0-9.0); NEUT # 7.9 10*3/uL (2.3-7.9); NEUT % 72.2 % (47.0-73.0); NUCLEATED RED BLOOD CELL 0.0 % (0.0-0.0); NUCLEATED RED BLOOD CELL 0.0 10*3/uL (0.0-0.0); PLATELET COUNT AUTOMATED 243 10*3/uL (130-400); RED CELL DISTRI WIDTH 13.7 % (0-14.5)
[2025-05-11 06:26] LABS: BUN 65.0 mg/dl (9-23)
[2025-05-11] MEDS ORDERED: HEPARIN SODIUM 10,000 UN/10 ML VIAL IV ONE (09:27)
[2025-05-11 11:01] VITALS: BP 132/86
[2025-05-11 12:00] VITALS: BP 162/77
[2025-05-11 16:00] VITALS: BP 140/71
[2025-05-11 20:00] VITALS: BP 147/76
[2025-05-12] VITALS: BP 138/72
[2025-05-12 05:47] LABS: BUN 49.0 mg/dl (9-23)
[2025-05-12 06:04] LABS: BASO # 0.1 10*3/uL (0.0-0.1); BASO % 0.6 % (0.0-1.0); EOS # 0.1 10*3/uL (0.0-0.4); EOS % 1.1 % (1.0-4.0); MEAN CELL VOLUME 86.3 fl (80.0-94.0); MEAN CORPUSCULAR HGB 27.3 pg (27.0-31.0); MEAN PLATELET VOLUME 11.3 fl (9.6-12.3); MONO # 0.9 10*3/uL (0.1-1.0); MONO % 11.1 % (3.0-9.0); NEUT # 5.7 10*3/uL (2.3-7.9); NEUT % 67.8 % (47.0-73.0); NUCLEATED RED BLOOD CELL 0.0 % (0.0-0.0); NUCLEATED RED BLOOD CELL 0.0 10*3/uL (0.0-0.0); PLATELET COUNT AUTOMATED 233 10*3/uL (130-400); RED CELL DISTRI WIDTH 13.4 % (0-14.5)
[2025-05-12 08:00] VITALS: BP 162/73
[2025-05-12 12:00] VITALS: BP 158/66
[2025-05-12] MEDS ORDERED: SODIUM CHLORIDE 0.9% 1,000 ML BAG IV ONE (12:30)
[2025-05-12] MEDS ORDERED: HEPARIN SODIUM 10,000 UN/10 ML VIAL IV ONE (12:30)
[2025-05-12] MEDS ORDERED: AMLODIPINE BESY10 MG PO (15:13)
[2025-05-12] MEDS ORDERED: APRESOLINE25 MG PO (15:13)
[2025-05-12] MEDS ORDERED: SEVELAMER HCL PO (15:13)
[2025-05-12] MEDS ORDERED: LOSARTAN POTASS25 M1 PO (15:13)
[2025-05-12 16:00] VITALS: BP 150/74
[2025-05-12 17:00] VITALS: BP 134/76
== END 2025-05-12 17:33 | disposition home or self-care (01) | DRG 682 ==
LOC: ED 15:54 → EDHOLD 19:27 → 4E 19:27 → EDHOLD 20:07 → 4E 20:07
PROVIDERS: Internal Medicine; Nurse Practitioner Family; Student in an Organized Health Care Education/Training Program; ADMIT Internal Medicine; ATTEND Internal Medicine
PROC: 02HV33Z Insertion of Infusion Device into Superior Vena Cava, Percutaneous Approach (ICD-10-PCS; principal; 2025-05-10)
PROC: B5180ZA Fluoroscopy of Superior Vena Cava using High Osmolar Contrast, Guidance (ICD-10-PCS; 2025-05-10)
PROC: B548ZZA Ultrasonography of Superior Vena Cava, Guidance (ICD-10-PCS; 2025-05-10)
PROC: 5A1D70Z Performance of Urinary Filtration, Intermittent, Less than 6 Hours Per Day (ICD-10-PCS; 2025-05-10)
PROC: 5A1D70Z Performance of Urinary Filtration, Intermittent, Less than 6 Hours Per Day (ICD-10-PCS; 2025-05-11)
DX: N17.0 Acute kidney failure with tubular necrosis (principal); E43 Unspecified severe protein-calorie malnutrition; I16.1 Hypertensive emergency; E11.22 Type 2 diabetes mellitus with diabetic chronic kidney disease; E11.51 Type 2 diabetes mellitus with diabetic peripheral angiopathy without gangrene; E78.5 Hyperlipidemia, unspecified; I12.9 Hypertensive chronic kidney disease with stage 1 through stage 4 chronic kidney disease, or unspecified chronic kidney disease; E66.9 Obesity, unspecified; Z66 Do not resuscitate; E55.9 Vitamin D deficiency, unspecified; E11.42 Type 2 diabetes mellitus with diabetic polyneuropathy; N18.5 Chronic kidney disease, stage 5; R31.9 Hematuria, unspecified; D64.9 Anemia, unspecified; M89.8X8 Other specified disorders of bone, other site; I70.1 Atherosclerosis of renal artery; E11.65 Type 2 diabetes mellitus with hyperglycemia; Z88.8 Allergy status to other drugs, medicaments and biological substances; Z91.09 Other allergy status, other than to drugs and biological substances; Z79.899 Other long term (current) drug therapy; Z79.01 Long term (current) use of anticoagulants; Z79.2 Long term (current) use of antibiotics; Z79.82 Long term (current) use of aspirin; Z79.4 Long term (current) use of insulin; Z86.14 Personal history of Methicillin resistant Staphylococcus aureus infection; Z89.422 Acquired absence of other left toe(s); Z83.3 Family history of diabetes mellitus; Z68.32 Body mass index [BMI] 32.0-32.9, adult; Z82.49 Family history of ischemic heart disease and other diseases of the circulatory system; Z80.52 Family history of malignant neoplasm of bladder; Z86.718 Personal history of other venous thrombosis and embolism; Z86.16 Personal history of COVID-19

== ENCOUNTER → 2025-06-20 | Outpatient (CLI) | payer OTHER ==
[~2025-06-20] MED LIST changes: +AMLODIPINE BESY10 MG PO; +APRESOLINE25 MG PO; +LOSARTAN POTASS25 M1 PO; +SEVELAMER HCL PO
== END | disposition home or self-care (01) ==
LOC: RESCLI 12:13
PROVIDERS: ATTEND Family Medicine
DX: E11.9 Type 2 diabetes mellitus without complications (principal); I12.9 Hypertensive chronic kidney disease with stage 1 through stage 4 chronic kidney disease, or unspecified chronic kidney disease; N18.30 Chronic kidney disease, stage 3 unspecified; E78.5 Hyperlipidemia, unspecified; Z79.899 Other long term (current) drug therapy; Z79.82 Long term (current) use of aspirin; Z98.890 Other specified postprocedural states